=== PATIENT | male | born 1985 | race Caucasian/White ===

== ENCOUNTER 2016-08-21 12:35 | Emergency (ER) | payer BC, MEDICAID, OTHER ==
--- NOTE | 2016-08-21 12:59 | ER Document Report ---
ED Medical Screen (RME) - General Chief Complaint: Chest Pain Stated Complaint: CHEST PAIN AND BACK PAIN Time Seen by Provider: 08/21/16 12:53 Mode of Arrival: Ambulatory Information source: Patient TRAVEL OUTSIDE OF THE [place] IN LAST 30 DAYS: No - HPI Onset: Other - 2 DAYS Onset/Duration: Gradual Quality of pain: Sharp - SOMETIMES Severity: Moderate Associated Symptoms: Chest pain, Chills, Cough (productive), Diarrhea, Nausea, Shortness of breath, Vomiting Exacerbated by: Coughing, Deep breathing Relieved by: Denies Similar symptoms previously: No Recently seen / treated by doctor: No - Related Data Smoking: Less than 1 pack/day Frequency of alcohol use: Occasional Drug Abuse: Marijuana Allergies/Adverse Reactions: No Known Allergies Allergy (Unverified 08/21/16 12:48) Past Medical History - General Information source: Patient - Social History Cigarette use (# per day): Yes Chew tobacco use (# tins/day): No Frequency of alcohol use: Occasional Drug Abuse: Marijuana Lives with: Spouse/Significant other Family history: CAD - Past Medical History Cardiac Medical History: Reports: None Pulmonary Medical History: Reports: None EENT Medical History: Reports: None Endocrine Medical History: Reports: None Renal/ Medical History: Denies: Hx Peritoneal Dialysis Malignancy Medical History: Reports None GI Medical History: Reports: None Musculoskeltal Medical History: Reports None Psychiatric Medical History: Reports: None Review of Systems - Review of Systems Constitutional: See HPI EENT: No symptoms reported Cardiovascular: See HPI Respiratory: See HPI Gastrointestinal: See HPI Physical Exam - Vital signs Vitals: Temp Pulse Resp BP Pulse Ox 97.6 F 80 18 150/80 H 98 08/21/16 12:48 08/21/16 12:48 08/21/16 12:48 08/21/16 12:48 08/21/16 12:48 Interpretation: Hypertensive. No: Tachycardic, Tachypneic, Febrile Course - Vital Signs Vital signs: Temp Pulse Resp BP Pulse Ox 97.6 F 80 18 150/80 H 98 08/21/16 12:48 08/21/16 12:48 08/21/16 12:48 08/21/16 12:48 08/21/16 12:48
--- NOTE | 2016-08-21 13:21 | RADIOLOGY REPORT (SQ) ---
EXAM DESCRIPTION: CHEST PA/LAT COMPLETED DATE/TIME: 08/21/2016 1:15 pm REASON FOR STUDY: CHEST PAIN, PRODUCTIVE COUGH COMPARISON: 07/17/2006. EXAM PARAMETERS: NUMBER OF VIEWS: two views TECHNIQUE: Digital Frontal and Lateral radiographic views of the chest acquired. RADIATION DOSE: NA LIMITATIONS: none FINDINGS: LUNGS AND PLEURA: No opacities, masses or pneumothorax. No pleural effusion. MEDIASTINUM AND HILAR STRUCTURES: No masses or contour abnormalities. HEART AND VASCULAR STRUCTURES: Heart normal size. No evidence for failure. BONES: No acute findings. HARDWARE: None in the chest. OTHER: No other significant finding. IMPRESSION: NO SIGNIFICANT RADIOGRAPHIC FINDING IN THE CHEST. TECHNICAL DOCUMENTATION: JOB ID: [id number] [employer]- All Rights Reserved
[2016-08-21 13:24] LABS: ABSOLUTE LYMPHOCYTES (AUTO) 2.3 10^3/uL (0.5-4.7); ABSOLUTE MONOCYTES (AUTO) 0.8 10^3/uL (0.1-1.4); ABSOLUTE NEUT (AUTO) 15.4 10^3/uL (1.7-8.2); BASOPHILS % (AUTO) 0.2 % (0-2); EOSINOPHILS % (AUTO) 0.1 % (0-6); HEMOGLOBIN 17.7 g/dL (13.5-17.0); HGB HCT DIFFERENCE 0.1; LYMPHOCYTES % (AUTO) 12.2 % (13-45); MEAN CORPUSCULAR HEMOGLOBIN 29.1 pg (27.0-33.4); MEAN CORPUSCULAR HGB CONC 33.5 g/dL (32.0-36.0); MEAN CORPUSCULAR VOLUME 87 fl (80-97); MONOCYTES % (AUTO) 4.4 % (3-13); RED CELL DISTRIBUTION WIDTH 13.7 % (11.5-14.0); SEGMENTED NEUTROPHILS % (AUTO) 83.1 % (42-78); WHITE BLOOD COUNT 18.5 10^3/uL (4.0-10.5)
[2016-08-21 13:36] LABS: ALANINE AMINOTRANSFERASE 45 U/L (21-72); ALBUMIN 5.2 g/dL (3.5-5.0); ALKALINE PHOSPHATASE 72 U/L (38-126); ANION GAP 16 (5-19); ASPARTATE AMINO TRANSFERASE 26 U/L (17-59); BILIRUBIN,DIRECT 0.3 mg/dL (0.0-0.4); BILIRUBIN,TOTAL 1.1 mg/dL (0.2-1.3); BLOOD UREA NITROGEN 15 mg/dL (7-20); CALCIUM 10.5 mg/dL (8.4-10.2); CARBON DIOXIDE 26 mmol/L (22-30); CHLORIDE 93 mmol/L (98-107); CREATINE KINASE 123 U/L (55-170); CREATININE RESULT 0.89 mg/dL (0.52-1.25); GLUCOSE 116 mg/dL (75-110); POTASSIUM 4.1 mmol/L (3.6-5.0); SODIUM 135.1 mmol/L (137-145); TOTAL PROTEIN 8.6 g/dL (6.3-8.2)
[2016-08-21 13:48] LABS: CREATINE KINASE MB 1.67 ng/mL (<4.55)
[2016-08-21 13:50] LABS: TROPONIN I < 0.012 ng/mL
[2016-08-21] MEDS ORDERED: KETOROLAC TROMETHAMINE INJ/PF 30 MG/1 ML SDV IV ONE (13:57)
[2016-08-21] MEDS ORDERED: ONDANSETRON 4 MG TAB.RAPDIS PO ONE (13:57)
[2016-08-21 14:00] LABS: APPEARANCE,URINE CLEAR; BILIRUBIN,URINE NEGATIVE (NEGATIVE); GLUCOSE, URINE NEGATIVE (NEGATIVE); KETONES,URINE 20 mg/dL (NEGATIVE); LEUKOCYTE ESTERASE,URINE NEGATIVE (NEGATIVE); NITRITE,URINE NEGATIVE (NEGATIVE); PROTEIN,URINE NEGATIVE (NEGATIVE); URINE SPECIFIC GRAVITY 1.011; UROBILINOGEN,URINE NEGATIVE mg/dL (<2.0)
--- NOTE | 2016-08-21 14:03 | ER Document Report ---
ED General - General Chief Complaint: Chest Pain Stated Complaint: CHEST PAIN AND BACK PAIN Time Seen by Provider: 08/21/16 12:53 Mode of Arrival: Ambulatory Notes: The patient is a 31-year-old male, no past medical history, presents with 1 week of left posterior chest wall pain, that is worse when he moves his shoulder and scapula. In addition, he is having nausea and vomiting over the past 3 days. He denies shortness of breath, fevers, hemoptysis, abdominal pain , diarrhea, constipation, sick contacts, numbness, tingling or shoulder injury. TRAVEL OUTSIDE OF THE [place] IN LAST 30 DAYS: No - Related Data Allergies/Adverse Reactions: No Known Allergies Allergy (Unverified 08/21/16 12:48) Past Medical History - General Information source: Patient - Social History Smoking Status: Current Every Day Smoker Cigarette use (# per day): Yes Chew tobacco use (# tins/day): No Frequency of alcohol use: Occasional Drug Abuse: Marijuana Lives with: Spouse/Significant other Family History: Reviewed & Not Pertinent - Past Medical History Cardiac Medical History: Reports: None Pulmonary Medical History: Reports: None EENT Medical History: Reports: None Endocrine Medical History: Reports: None Renal/ Medical History: Denies: Hx Peritoneal Dialysis Malignancy Medical History: Reports None GI Medical History: Reports: None Musculoskeltal Medical History: Reports None Psychiatric Medical History: Reports: None Surgical Hx: Negative Review of Systems - Review of Systems Notes: REVIEW OF SYSTEMS: CONSTITUTIONAL: -fevers, -chills EENT: -eye pain, -difficulty swallowing, -nasal congestion CARDIOVASCULAR: +chest pain, -syncope. RESPIRATORY: -cough, -SOB GASTROINTESTINAL: -abdominal pain, +nausea, +vomiting, -diarrhea GENITOURINARY: -dysuria, -hematuria MUSCULOSKELETAL: -back pain, -neck pain SKIN: -rash or skin lesions. HEMATOLOGIC: -easy bruising or bleeding. LYMPHATIC: -swollen, enlarged glands. NEUROLOGICAL: -altered mental status or loss of consciousness, -headache, - neurologic symptoms PSYCHIATRIC: -anxiety, -depression. ALL OTHER SYSTEMS REVIEWED AND NEGATIVE. Physical Exam - Vital signs Vitals: Temp Pulse Resp BP Pulse Ox 97.6 F 80 18 150/80 H 98 08/21/16 12:48 08/21/16 12:48 08/21/16 12:48 08/21/16 12:48 08/21/16 12:48 - Notes Notes: PHYSICAL EXAMINATION: GENERAL: Well-appearing, well-nourished and in no acute distress. HEAD: Atraumatic, normocephalic. EYES: Pupils equal round and reactive to light, extraocular movements intact, sclera anicteric, conjunctiva are normal. ENT: nares patent, oropharynx clear without exudates. Moist mucous membranes. NECK: Normal range of motion, supple without lymphadenopathy LUNGS: Breath sounds clear to auscultation bilaterally and equal. No wheezes rales or rhonchi. HEART: Regular rate and rhythm without murmurs ABDOMEN: Soft, nontender, normoactive bowel sounds. No guarding, no rebound. No masses appreciated. EXTREMITIES: Normal range of motion, no pitting or edema. No cyanosis. Tenderness over inferior edge of left scapula, worse with scapular movement NEUROLOGICAL: Cranial nerves grossly intact. Normal speech, normal gait. Normal sensory and motor exams. PSYCH: Normal mood, normal affect. SKIN: Warm, Dry, normal turgor, no rashes or lesions noted. Course - Re-evaluation Re-evalutation: Patient appears well. He has left inferior scapular pain and tenderness, which is most likely related to muscle strain. His EKG and troponin do not show any evidence of acute coronary syndrome and his HEART score is 1. Labs are unremarkable, other than a leukocytosis. He does not have any signs of infection or fever and this may be related to his recent vomiting episodes. After Zofran, patient is drinking fluids without any nausea or vomiting. Given strict return precautions and he understands. - Vital Signs Vital signs: Temp Pulse Resp BP Pulse Ox 97.6 F 80 19 154/95 H 96 08/21/16 12:48 08/21/16 12:48 08/21/16 13:21 08/21/16 13:21 08/21/16 13:21 - Laboratory Result Diagrams: 08/21/16 12:59 08/21/16 12:59 Laboratory results interpreted by me: 08/21/16 08/21/16 08/21/16 12:59 12:59 12:59 WBC 18.5 H RBC 6.10 H Hgb 17.7 H Hct 53.0 H Plt Count 149 L Seg Neutrophils % 83.1 H Lymphocytes % 12.2 L Absolute Neutrophils 15.4 H Sodium 135.1 L Chloride 93 L Glucose 116 H Calcium 10.5 H Total Protein 8.6 H Albumin 5.2 H Urine Ketones 20 H - Diagnostic Test Radiology reviewed: Image reviewed, Reports reviewed Radiology results interpreted by me: CXR: NAD - EKG Interpretation by Me EKG shows normal: Sinus rhythm, Wheeler, Intervals, QRS Complexes, ST-T Waves Rate: Normal Discharge - Discharge Clinical Impression: Nausea Chest pain Qualifiers: Chest pain type: unspecified Qualified Code(s): R07.9 - Chest pain, unspecified Back pain Qualifiers: Back pain location: back pain in other location Chronicity: acute Qualified Code(s): M54.9 - Dorsalgia, unspecified Condition: Stable Disposition: HOME, SELF-CARE Additional Instructions: CHEST PAIN OF UNCLEAR CAUSE: The exact cause of your chest pain isn't clear. Fortunately, there is no evidence of a dangerous medical condition. Further testing may be required to find the source of the pain. Most often, we find that this pain is coming from the chest wall -- the muscles or rib joints in the chest. But chest pain can come from the lung and lung lining, the esophagus, the heart valves or heart lining, and even the stomach or gallbladder. Rest. Eat lightly until the pain is gone. We may prescribe medicine for pain and inflammation. You should call the physician immediately if the pain radiates to the shoulder, jaw or arms; if you start to run a fever or develop a cough; or if you develop shortness of breath, or other new or alarming symptoms. NORMAL EXAM AND WORKUP: At this time, your examination and workup show no significant abnormality. No significant abnormal physical findings were noted. All laboratory, EKG, and imaging (x-ray, CT scans, ultrasound) studies that were ordered show no significant abnormality. Although your examination and all studies that were ordered showed no significant abnormal finding, there are no examinations and no studies that are 100% accurate. There is always the possibility that some abnormality could exist and not be detected with physical examination or within the limits and capabilities of laboratory and other studies. You should return or follow up as you were instructed on your visit today for further evaluation if your symptoms do not resolve. CHEST WALL PAIN: Your chest pain may be coming from the chest wall. This is often caused by straining the muscles or joints in the chest during physical activity, direct trauma, coughing, or vigorous vomiting. Persons with arthritis are especially prone to this type of pain, due to inflammation of the cartilage joints near the breast bone. Occasionally, no cause can be found. Rest from strenuous physical activity. This kind of chest pain is usually made worse by movement of the chest. Depending on the symptoms, we may prescribe medicine for pain, muscle relaxation, and antiinflammatory effects. If the pain is new, and seems to be due to muscle strain, cold packs can help. Otherwise, apply gentle warmth to the painful area for 15 minutes every hour or two. You should call contact the doctor immediately if things change. Further evaluation is needed if you develop a fever or cough, if the nature of the pain changes, or if you become short of breath. FOLLOW-UP CARE: If you have been referred to a physician for follow-up care, call the physician s office for an appointment as you were instructed or within the next two days. If you experience worsening or a significant change in your symptoms, notify the physician immediately or return to the Emergency Department at any time for re-evaluation. VOMITING: Vomiting (or nausea without vomiting) can be caused by many other different problems. It can mean that something's wrong with the stomach, such as ulcers or inflammation or the intestinal tract, such as appendicitis. But it can also be a symptom of a problem that has nothing to do with the stomach or intestines. Vomiting is common with severe headaches, earaches, tonsillitis, and kidney infections, etc. We see it with pneumonia or heart attacks. Drugs can cause nausea and vomiting. Many abdominal problems cause vomiting; for example, gallstones, kidney stones, pancreatitis, and intestinal obstruction ( blocked bowels). In most cases, curing the vomiting depends on fixing the problem that caused it. For temporary relief, we may use an anti-nausea medicine. For home use, we can prescribe suppositories, chewable pills, pills that dissolve in the mouth, or liquid anti-nausea drugs. If the vomiting seems to be caused by a problem in the stomach, acid-suppressing drugs may be prescribed as well. It's important to avoid dehydration. Sip small amounts of clear liquids ( soft drinks, tea, broth, etc) . Try to take fluids frequently even if you are vomiting to prevent dehydration. Take increasing amounts of fluid and when liquids are being consumed successfully, advance to small amounts of bland food (toast, soups, mashed potatoes, etc.) until you are able to resume a regular diet. Avoid aspirin, tobacco, and alcohol. If the vomiting worsens, if the problem that's making you vomit worsens, or if there's evidence of bleeding in the stomach (such as black, tarry stool, or bloody or black vomit), you should return immediately. Also, return if abdominal pain worsens or becomes localized to one area or you develop high fever. Call your doctor if you aren't improved in 24 hours. ANTINAUSEA MEDICATION: You have been given a medication to suppress nausea and vomiting. This type of medication can be given as a shot, pill, or suppository. It will usually last for many hours. Pills and shots usually last six to eight hours. For the typical illness, only one or two doses of the medication may be necessary. Mild lightheadedness may occur. This type of medicine can cause drowsiness. Do not drive or operate dangerous machinery while under its influence. Do not mix with alcohol. See your doctor at once if you have muscle spasms or tightness, or uncontrollable motions (particularly of the neck, mouth, or jaw). Persistent vomiting or severe lightheadedness should also be evaluated by the physician. FOLLOW-UP CARE: If you have been referred to a physician for follow-up care, call the physician s office for an appointment as you were instructed or within the next two days. If you experience worsening or a significant change in your symptoms, notify the physician immediately or return to the Emergency Department at any time for re-evaluation. Prescriptions: Lidocaine [Lidoderm 5% (700 mg) Transdermal Patch] 1 patch TP DAILY #10 adh..patch Naproxen [Naprosyn 250 mg Tablet] 500 mg PO Q12H PRN #30 tablet PRN Reason: Ondansetron [Zofran Odt 4 mg Tablet] 1 - 2 tab PO Q4H PRN #15 tab.rapdis PRN Reason: For Nausea/Vomiting Forms: Elevated Blood Pressure Referrals: HELGA ALLEN MD [ACTIVE STAFF] - Follow up as needed
--- NOTE | 2016-08-21 14:05 | EKG REPORT ---
SEVERITY:- BORDERLINE ECG - SINUS RHYTHM NONSPECIFIC ST-T CHANGES- INFERIOR LEADS : Confirmed by: Lorenzo Lopez MD 21-Aug-2016 14:04:27
[2016-08-21 14:17] VITALS: BP 133/82
== END 2016-08-21 14:05 | disposition home or self-care (01) ==
LOC: ER 12:35
DX: R11.2 Nausea with vomiting, unspecified (principal); R07.9 Chest pain, unspecified; M54.9 Dorsalgia, unspecified; R07.89 Other chest pain; F17.210 Nicotine dependence, cigarettes, uncomplicated
CPT/HCPCS: 93005; 99285; 36415; 87040; 82553; 82550; 85025; 80053; 81001; 84484; 71020; 93010; S0119

== ENCOUNTER 2016-10-11 09:34 | Emergency (ER) | payer SELFPAY ==
[2016-10-11] MEDS ORDERED: ONDANSETRON HCL INJ/PF 4 MG/2 ML SDV IV ONE (09:53)
--- NOTE | 2016-10-11 09:55 | ER Document Report ---
ED Medical Screen (RME) - General Chief Complaint: Abdominal Pain Stated Complaint: VOMITING,WEAKNESS Time Seen by Provider: 10/11/16 09:52 Notes: Patient states that this is his third visit recently for the same problems. He states he has nausea vomiting diarrhea, and fatigue and abdominal pain. He states the previous 2 times he was diagnosed with a viral infection. He states he will feel better for a couple of days and then the same symptoms returned. He denies any drug or alcohol use. He denies any chronic medical conditions. He denies any abdominal surgeries. TRAVEL OUTSIDE OF THE [place] IN LAST 30 DAYS: No - Related Data Allergies/Adverse Reactions: No Known Allergies Allergy (Unverified 10/11/16 09:49) Past Medical History - Social History Family history: CAD Renal/ Medical History: Denies: Hx Peritoneal Dialysis Physical Exam - Vital signs Vitals: Resp 18 10/11/16 09:45 Course - Vital Signs Vital signs: Temp Pulse Resp BP Pulse Ox 98.0 F 60 18 163/98 H 99 10/11/16 09:47 10/11/16 09:47 10/11/16 09:47 10/11/16 09:47 10/11/16 09:47
[2016-10-11] MEDS: NORMAL SALINE 1000 ML 1,000 ML IV PRN ×2 (10:08→10:48)
[2016-10-11 10:25] LABS: ABSOLUTE BASOPHILS # (AUTO) 0.1 10^3/uL (0.0-0.2); ABSOLUTE LYMPHOCYTES (AUTO) 1.1 10^3/uL (0.5-4.7); ABSOLUTE MONOCYTES (AUTO) 0.5 10^3/uL (0.1-1.4); ABSOLUTE NEUT (AUTO) 11.6 10^3/uL (1.7-8.2); BASOPHILS % (AUTO) 0.4 % (0-2); EOSINOPHILS % (AUTO) 0.1 % (0-6); HEMATOCRIT 47.9 % (37.9-51.0); HGB HCT DIFFERENCE 0.1; LYMPHOCYTES % (AUTO) 8.5 % (13-45); MEAN CORPUSCULAR HEMOGLOBIN 29.9 pg (27.0-33.4); MEAN CORPUSCULAR HGB CONC 33.5 g/dL (32.0-36.0); MEAN CORPUSCULAR VOLUME 89 fl (80-97); MONOCYTES % (AUTO) 3.7 % (3-13); RED BLOOD COUNT 5.35 10^6/uL (4.35-5.55); RED CELL DISTRIBUTION WIDTH 14.4 % (11.5-14.0); SEGMENTED NEUTROPHILS % (AUTO) 87.3 % (42-78); WHITE BLOOD COUNT 13.3 10^3/uL (4.0-10.5)
--- NOTE | 2016-10-11 10:27 | ER Document Report ---
ED GI/ <SIRENA SLATER - Last Filed: 10/11/16 12:05> - General Mode of Arrival: Ambulatory Information source: Patient TRAVEL OUTSIDE OF THE [place] IN LAST 30 DAYS: No <JASMYN OWENS - Last Filed: 10/11/16 12:32> - General Chief Complaint: Abdominal Pain Stated Complaint: VOMITING,WEAKNESS Time Seen by Provider: 10/11/16 09:52 Notes: Patient is a 31-year-old male who presents to the emergency department today with complaints of diffuse abdominal pain with continuous vomiting. Patient states he has been having the same issue on and off for months. Of note, patient has still been smoking marijuana. Patient denies any changes in his symptoms from his previous visits. (JASMYN OWENS) - Related Data Allergies/Adverse Reactions: No Known Allergies Allergy (Verified 10/11/16 10:44) Past Medical History - General Information source: Patient - Social History Smoking Status: Never Smoker Cigarette use (# per day): No Frequency of alcohol use: None Drug Abuse: None Lives with: Family Family History: Reviewed & Not Pertinent Patient has suicidal ideation: No - Medical History Medical History: Negative Past Surgical History: Reports: Hx Orthopedic Surgery - right achilles repair <JASMYN OWENS - Last Filed: 10/11/16 12:32> Review of Systems - Review of Systems Constitutional: No symptoms reported EENT: No symptoms reported Cardiovascular: No symptoms reported Respiratory: No symptoms reported Gastrointestinal: See HPI, Abdominal pain, Nausea, Vomiting Genitourinary: No symptoms reported Male Genitourinary: No symptoms reported Musculoskeletal: No symptoms reported Skin: No symptoms reported Hematologic/Lymphatic: No symptoms reported Neurological/Psychological: No symptoms reported -: Yes All other systems reviewed and negative <JASMYN OWENS - Last Filed: 10/11/16 12:32> Physical Exam - Vital signs Interpretation: Normal - General General appearance: Appears well, Alert - HEENT Head: Normocephalic, Atraumatic Eyes: Normal Pupils: PERRL - Respiratory Respiratory status: No respiratory distress Breath sounds: Wheezing - diffuse, consistent with smoking history Chest palpation: Normal - Cardiovascular Rhythm: Regular Heart sounds: Normal auscultation Murmur: No - Abdominal Distension: No distension Bowel sounds: Normal Tenderness: Tender - mild diffuse abdominal tenderness Organomegaly: No organomegaly - Back Back: Normal, Nontender - Extremities General upper extremity: Normal inspection, Normal ROM. No: Edema General lower extremity: Normal inspection, Normal ROM. No: Edema - Neurological Neuro grossly intact: Yes Cognition: Normal Orientation: AAOx4 Buchtel Coma Scale Eye Opening: Spontaneous Rainer Coma Scale Verbal: Oriented Rainer Coma Scale Motor: Obeys Commands Buchtel Coma Scale Total: 15 Speech: Normal - Psychological Associated symptoms: Normal affect, Normal mood - Skin Skin Temperature: Warm Skin Moisture: Dry Skin Color: Normal <JASMYN OWENS - Last Filed: 10/11/16 12:32> - Vital signs Vitals: Resp 18 10/11/16 09:45 Course - Laboratory Result Diagrams: 10/11/16 10:00 10/11/16 10:00 <SIRENA SLATER - Last Filed: 10/11/16 12:05> - Laboratory Result Diagrams: 10/11/16 10:00 10/11/16 10:00 <JASMYN OWENS - Last Filed: 10/11/16 12:32> - Re-evaluation Re-evalutation: 10/11/16 12:05 Patient is feeling better, the vomiting is under control. He still does have some discomfort in the left upper abdomen. (SIRENA SLATER) - Vital Signs Vital signs: Temp Pulse Resp BP Pulse Ox 97.4 F 66 18 154/79 H 100 10/11/16 12:16 10/11/16 12:16 10/11/16 12:16 10/11/16 12:16 10/11/16 12:16 - Laboratory Laboratory results interpreted by me: 10/11/16 10/11/16 10/11/16 10:00 10:00 10:00 WBC 13.3 H RDW 14.4 H Plt Count 137 L Seg Neutrophils % 87.3 H Lymphocytes % 8.5 L Absolute Neutrophils 11.6 H Sodium 136.8 L Direct Bilirubin 0.6 H Urine Ketones 20 H Urine Ascorbic Acid 40 H Discharge <SIRENA SLATER - Last Filed: 10/11/16 12:05> <JASMYN OWENS - Last Filed: 10/11/16 12:32> - Discharge Clinical Impression: Cyclic vomiting syndrome Qualifiers: Vomiting Intractability: non-intractable Nausea presence: with nausea Qualified Code(s): G43.A0 - Cyclical vomiting, not intractable Nausea & vomiting Qualifiers: Vomiting type: unspecified Vomiting Intractability: non-intractable Qualified Code(s): R11.2 - Nausea with vomiting, unspecified Abdominal pain Qualifiers: Abdominal location: left upper quadrant Qualified Code(s): R10.12 - Left upper quadrant pain Condition: Stable Disposition: HOME, SELF-CARE Additional Instructions: Your history and exam are most consistent with THC-induced hyperemesis, also known as cyclic vomiting. If THC is the cause of this, it will be difficult to stop your symptoms without refraining from marijuana use for up to 2 months or more. Drink plenty of fluids. Take the medication for nausea as prescribed if needed. Follow-up with a local medical doctor if not improving. RETURN TO THE EMERGENCY ROOM IF ANY NEW OR WORSENING SYMPTOMS. Prescriptions: Metoclopramide HCl [Reglan 10 mg Tablet] 1 tab PO ASDIR PRN #25 tablet PRN Reason: Scribe Attestation: 10/11/16 12:11 I personally performed the services described in the documentation, reviewed and edited the documentation which was dictated to the scribe in my presence, and it accurately records my words and actions. (SIRENA SLATER) Scribe Documentation - Scribe Written by Clemencia:: Clemencia Reese, 10/11/2016 1232 acting as scribe for :: Cesar <JASMYN OWENS - Last Filed: 10/11/16 12:32>
[2016-10-11] MEDS ORDERED: METOCLOPRAMIDE HCL INJ/PF 10 MG/2 ML SDV IV ONE (10:30)
[2016-10-11] MEDS ORDERED: KETOROLAC TROMETHAMINE INJ/PF 30 MG/1 ML SDV IV ONE (10:30)
[2016-10-11 10:36] LABS: APPEARANCE,URINE SLIGHTLY-CLOUDY; BILIRUBIN,URINE NEGATIVE (NEGATIVE); GLUCOSE, URINE NEGATIVE (NEGATIVE); KETONES,URINE 20 mg/dL (NEGATIVE); LEUKOCYTE ESTERASE,URINE NEGATIVE (NEGATIVE); NITRITE,URINE NEGATIVE (NEGATIVE); PROTEIN,URINE NEGATIVE (NEGATIVE); UROBILINOGEN,URINE NEGATIVE mg/dL (<2.0)
[2016-10-11 10:46] LABS: URINE BARBITURATES SCREEN NEGATIVE; URINE METHADONE SCREEN NEGATIVE; URINE OPIATES LOW NEGATIVE; URINE PHENCYCLIDINE SCREEN NEGATIVE
[2016-10-11 10:48] LABS: ALANINE AMINOTRANSFERASE 38 U/L (21-72); ALBUMIN 4.9 g/dL (3.5-5.0); ALKALINE PHOSPHATASE 68 U/L (38-126); ANION GAP 13 (5-19); ASPARTATE AMINO TRANSFERASE 25 U/L (17-59); BILIRUBIN,DIRECT 0.6 mg/dL (0.0-0.4); BILIRUBIN,TOTAL 0.9 mg/dL (0.2-1.3); BLOOD UREA NITROGEN 16 mg/dL (7-20); CARBON DIOXIDE 24 mmol/L (22-30); CHLORIDE 100 mmol/L (98-107); CREATININE RESULT 0.75 mg/dL (0.52-1.25); GLUCOSE 98 mg/dL (75-110); POTASSIUM 4.4 mmol/L (3.6-5.0); SODIUM 136.8 mmol/L (137-145); TOTAL PROTEIN 7.7 g/dL (6.3-8.2)
[2016-10-11 10:50] LABS: ALCOHOL < 10 mg/dL (NONE DETECTED)
[2016-10-11 12:17] VITALS: BP 154/79
== END 2016-10-11 12:20 | disposition home or self-care (01) ==
LOC: ER 09:34
DX: G43.A0 Cyclical vomiting, in migraine, not intractable (principal); R10.12 Left upper quadrant pain; R53.1 Weakness
CPT/HCPCS: 99284; 96361; 96374; 96375; 36415; 80307 ×2; 83690; 85025; 80053; 81001; J1885; J2765; J2405; J7030

== ENCOUNTER 2017-04-03 08:33 | Emergency (ER) | payer SELFPAY ==
[2017-04-03] MEDS ORDERED: KETOROLAC TROMETHAMINE 60 MG/2 ML SDV IM ONE (08:55)
[2017-04-03] MEDS ORDERED: CEFTRIAXONE INJ 1000 MG VIAL IM ONE (08:55)
--- NOTE | 2017-04-03 09:00 | ER Document Report ---
ED Extremity Problem, Lower - General Chief Complaint: Leg Swelling Stated Complaint: LEG PAIN Time Seen by Provider: 04/03/17 08:54 Information source: Patient Notes: 31 years old male presents today with right lower leg swelling and redness, for the last few days.. With a previous history of cellulitis of the right lower leg. No fever chills or other constitutional symptoms. He stands up and work all the time the other day he accidentally hit the medial part of the lower leg against a hard object. Subsequently developed this redness and swelling. TRAVEL OUTSIDE OF THE [place] IN LAST 30 DAYS: No - HPI Patient complains to provider of: Pain. No: Altered sensation, Injury, Swelling , Other Location: Leg. No: Ankle, Back, Buttock, Foot, Hip, Knee, Thigh, Great Toe, 2nd Toe, 3rd Toe, 4th Toe, 5th Toe Where: No: Home, Indoors, Neighbor's, Long-Term, Outdoors, Public place, School, Sports, Work, Other Onset/Duration: Gradual. denies: Sudden, Constant, Intermittent, Persistent, Waxing and waning, Better, Worse, Gone Quality of pain: Achy. denies: No pain, Burning, Cramping, Dull, Fullness, Pressure, Sharp, Stabbing, Throbbing, Other Severity: Mild Pain Level: 2 Context: denies: Barefoot, Burn, Crush, Direct blow, Fell, Laceration, Prolonged pressure on ext, Recent immobilization, Recent surgery, Recent travel , Stubbed, Twisted, Wearing shoes, Other - Related Data Allergies/Adverse Reactions: No Known Allergies Allergy (Verified 04/03/17 08:34) Past Medical History - General Information source: Patient - Social History Smoking Status: Never Smoker Cigarette use (# per day): No Chew tobacco use (# tins/day): No Smoking Education Provided: No Frequency of alcohol use: Social Drug Abuse: None Lives with: Family Family History: Reviewed & Not Pertinent Patient has suicidal ideation: No Patient has homicidal ideation: No - Past Medical History Cardiac Medical History: Denies: None, Hx Atrial Fibrillation, Hx Congestive Heart Failure, Hx Coronary Artery Disease, Hx DVT, Hx Heart Attack, Hx Hypercholesterolemia, Hx Hypertension, Hx Peripheral Vascular Disease, Hx Pulmonary Embolism, Hx Heart Murmur, Other Pulmonary Medical History: Denies: None, Hx Asthma, Hx Bronchitis, Hx COPD, Hx Pneumonia, Hx Intubation , Hx Respiratory Failure, Hx Sleep Apnea, Hx Tuberculosis, Other EENT Medical History: Denies: None, Eyes, Ears, Nose, Throat, Other Neurological Medical History: Denies: None, Hx Cerebrovascular Accident, Hx Migraine, Hx Seizures, Other Endocrine Medical History: Denies: None, Hx Diabetes Mellitus Type 1, Hx Diabetes Mellitus Type 2, Hx Graves' Disease, Hx Hyperthyroidism, Hx Hypothyroidism, Other Renal/ Medical History: Denies: Hx Peritoneal Dialysis Past Surgical History: Reports: Hx Orthopedic Surgery - right achilles repair Review of Systems - Review of Systems Constitutional: denies: No symptoms reported, See HPI, Chills, Diaphoresis, Fever, Malaise, Weakness, Other, Weight gain, Weight loss, Recent illness EENT: denies: No symptoms reported, See HPI, Eye pain, Eye discharge, Blurred vision, Tearing, Double vision, Ear pain, Ear discharge, Nose pain, Nose congestion, Nose discharge, Sinus pressure, Sinus discharge, Throat pain, Difficulty swallowing, Throat swelling, Mouth pain, Mouth swelling, Dental problem, Vertigo, Other Cardiovascular: denies: No symptoms reported, See HPI, Chest pain, Palpitations , Heart racing, Orthopnea, Dyspnea, Syncope, Dizziness, Lightheaded, Edema, Other, Paroxysmal Nocturnal Dysp Respiratory: denies: No symptoms reported, See HPI, Cough, Hurts to breathe, Hemoptysis, Short of breath, Sputum, Stridor, Wheezing, Other Gastrointestinal: denies: No symptoms reported, See HPI, Abdomen distended, Abdominal pain, Diarrhea, Nausea, Vomiting, Constipation, Blood streaked bowels , Poor appetite, Poor fluid intake, Blood in vomit, Black stools, Rectal bleeding, Last bowel movement, Fecal incontinence, Other Genitourinary: denies: No symptoms reported, See HPI, Burning, Dysuria, Discharge, Frequency, Flank pain, Hematuria, Incontinence, Pain, Urgency, Retention, Other Musculoskeletal: denies: No symptoms reported, See HPI, Back pain, Gout, Joint pain, Joint swelling, Muscle pain, Muscle stiffness, Neck pain, Deformity, Leg swelling, Ankle swelling, Other Skin: denies: No symptoms reported, See HPI, Change in color, Change in hair/ nails, Dryness, Lesions, Lumps, Rash, Other Hematologic/Lymphatic: denies: No symptoms reported, See HPI, Anemia, Blood clots, Easy bleeding, Easy bruising, Enlarged lymph nodes, Swollen glands, Other Physical Exam - Vital signs Vitals: Temp Pulse Resp BP Pulse Ox 98.2 F 89 16 140/74 H 98 04/03/17 08:36 04/03/17 08:36 04/03/17 08:36 04/03/17 08:36 04/03/17 08:36 - Notes Notes: PHYSICAL EXAMINATION: GENERAL: Well-appearing, well-nourished and in no acute distress. HEAD: Atraumatic, normocephalic. EYES: Pupils equal round and reactive to light, extraocular movements intact, sclera anicteric, conjunctiva are normal. ENT: Nares patent, oropharynx clear without exudates. Moist mucous membranes. NECK: Normal range of motion, supple without lymphadenopathy LUNGS: Breath sounds clear to auscultation bilaterally and equal. No wheezes rales or rhonchi. HEART: Regular rate and rhythm without murmurs ABDOMEN: Soft, nontender, nondistended abdomen. No guarding, no rebound. No masses appreciated. Musculoskeletal: Normal range of motion, no pitting or edema. No cyanosis. NEUROLOGICAL: Cranial nerves grossly intact. Normal speech, normal gait. Normal sensory, motor exams PSYCH: Normal mood, normal affect. SKIN: Skin over the right medial lower leg shows diffuse erythema slight swelling is warm and tender to touch an area of 10 x 10 cm. No fluctuant mass. Course - Re-evaluation Re-evalutation: 04/03/17 10:49 He was given IM ceftriaxone, his white count came back slightly elevated at 13, 000. - Vital Signs Vital signs: Temp Pulse Resp BP Pulse Ox 97.8 F 78 16 137/80 H 100 04/03/17 10:59 04/03/17 10:59 04/03/17 10:59 04/03/17 10:59 04/03/17 10:59 - Laboratory Result Diagrams: 04/03/17 09:25 Laboratory results interpreted by me: 04/03/17 09:25 WBC 13.5 H Hgb 13.3 L Lymphocytes % 12.5 L Absolute Neutrophils 10.4 H Discharge - Discharge Clinical Impression: Cellulitis of right lower extremity Condition: Fair Disposition: HOME, SELF-CARE Instructions: Cellulitis ([facility]) Prescriptions: Cephalexin Monohydrate [Keflex 500 mg Capsule] 500 mg PO Q6H 10 Days #40 capsule Referrals: LOCALMD,NO [Primary Care Provider] - Follow up as needed
[2017-04-03] MEDS ORDERED: LIDOCAINE 1% INJ (10 MG/ML) 10 ML MDV INJ ONE (09:12)
[2017-04-03 09:43] LABS: ABSOLUTE BASOPHILS # (AUTO) 0.1 10^3/uL (0.0-0.2); ABSOLUTE EOSINOPHILS # (AUTO) 0.1 10^3/uL (0.0-0.6); ABSOLUTE LYMPHOCYTES (AUTO) 1.7 10^3/uL (0.5-4.7); ABSOLUTE MONOCYTES (AUTO) 1.2 10^3/uL (0.1-1.4); ABSOLUTE NEUT (AUTO) 10.4 10^3/uL (1.7-8.2); BASOPHILS % (AUTO) 0.5 % (0-2); EOSINOPHILS % (AUTO) 0.7 % (0-6); HEMATOCRIT 40.3 % (37.9-51.0); HEMOGLOBIN 13.3 g/dL (13.5-17.0); LYMPHOCYTES % (AUTO) 12.5 % (13-45); MEAN CORPUSCULAR HEMOGLOBIN 29.1 pg (27.0-33.4); MEAN CORPUSCULAR HGB CONC 33.1 g/dL (32.0-36.0); MEAN CORPUSCULAR VOLUME 88 fl (80-97); PLATELET COUNT 158 10^3/uL (150-450); RED BLOOD COUNT 4.58 10^6/uL (4.35-5.55); RED CELL DISTRIBUTION WIDTH 13.9 % (11.5-14.0); SEGMENTED NEUTROPHILS % (AUTO) 77.3 % (42-78); TOTAL CELLS COUNTED % (AUTO) 100 %; WHITE BLOOD COUNT 13.5 10^3/uL (4.0-10.5)
[2017-04-03 11:01] VITALS: BP 137/80
== END 2017-04-03 11:01 | disposition home or self-care (01) ==
LOC: ER 08:33
DX: L03.115 Cellulitis of right lower limb (principal)
CPT/HCPCS: 99283; 96372; 36415; 87040; 85025; J1885; J0696; 87077

== ENCOUNTER 2017-04-05 08:35 | Day surgery (SDC) | payer SELFPAY ==
--- NOTE | 2017-04-05 09:26 | ER Document Report ---
ED Extremity Problem, Lower - General Chief Complaint: Leg Swelling Stated Complaint: RIGHT LEG PAIN Time Seen by Provider: 04/05/17 09:22 Information source: Patient TRAVEL OUTSIDE OF THE [place] IN LAST 30 DAYS: No - HPI Patient complains to provider of: Pain. No: Altered sensation, Injury, Swelling , Other Location: Ankle, Foot, Leg. No: Back, Buttock, Hip, Knee, Thigh, Great Toe, 2nd Toe, 3rd Toe, 4th Toe, 5th Toe Occurred: Last week Where: Home. No: Indoors, Neighbor's, Senior Living, Outdoors, Public place, School, Sports, Work, Other Onset/Duration: Gradual Quality of pain: Achy, Dull. denies: No pain, Burning, Cramping, Fullness, Pressure, Sharp, Stabbing, Throbbing, Other Context: denies: Barefoot, Burn, Crush, Direct blow, Fell, Laceration, Prolonged pressure on ext, Recent immobilization, Recent surgery, Recent travel , Stubbed, Twisted, Wearing shoes, Other Associated symptoms: denies: Chest pain, Chills, Dizzy, Fainting, Fever, Appling a crack, [place] a pop, Hurts to breath, Painful ambulation, Rapid heart rate, Seizure, Short of breath, Sweaty, Unable to bear weight, Weak, Other Exacerbated by: denies: Nothing, Hanging down, Movement, Walking, Other - Related Data Allergies/Adverse Reactions: No Known Allergies Allergy (Verified 04/05/17 08:37) Past Medical History - General Information source: Patient - Social History Smoking Status: Unknown if Ever Smoked Cigarette use (# per day): No Chew tobacco use (# tins/day): No Smoking Education Provided: No Frequency of alcohol use: Occasional Lives with: Family Family History: Reviewed & Not Pertinent Patient has suicidal ideation: No Patient has homicidal ideation: No - Past Medical History Cardiac Medical History: Denies: Hx Atrial Fibrillation, Hx Congestive Heart Failure, Hx Coronary Artery Disease, Hx DVT, Hx Heart Attack, Hx Hypercholesterolemia, Hx Hypertension, Hx Peripheral Vascular Disease, Hx Pulmonary Embolism, Hx Heart Murmur Pulmonary Medical History: Denies: Hx Asthma, Hx Bronchitis, Hx COPD, Hx Pneumonia, Hx Intubation, Hx Respiratory Failure, Hx Sleep Apnea, Hx Tuberculosis Neurological Medical History: Denies: Hx Cerebrovascular Accident, Hx Migraine, Hx Seizures Endocrine Medical History: Denies: Hx Diabetes Mellitus Type 1, Hx Diabetes Mellitus Type 2, Hx Graves' Disease, Hx Hyperthyroidism, Hx Hypothyroidism Renal/ Medical History: Denies: Hx Peritoneal Dialysis Past Surgical History: Reports: Hx Orthopedic Surgery - right achilles repair Review of Systems - Review of Systems Constitutional: denies: No symptoms reported, See HPI, Chills, Diaphoresis, Fever, Malaise, Weakness, Other, Weight gain, Weight loss, Recent illness EENT: denies: No symptoms reported, See HPI, Eye pain, Eye discharge, Blurred vision, Tearing, Double vision, Ear pain, Ear discharge, Nose pain, Nose congestion, Nose discharge, Sinus pressure, Sinus discharge, Throat pain, Difficulty swallowing, Throat swelling, Mouth pain, Mouth swelling, Dental problem, Vertigo, Other Cardiovascular: denies: No symptoms reported, See HPI, Chest pain, Palpitations , Heart racing, Orthopnea, Dyspnea, Syncope, Dizziness, Lightheaded, Edema, Other, Paroxysmal Nocturnal Dysp Respiratory: denies: No symptoms reported, See HPI, Cough, Hurts to breathe, Hemoptysis, Short of breath, Sputum, Stridor, Wheezing, Other Gastrointestinal: denies: No symptoms reported, See HPI, Abdomen distended, Abdominal pain, Diarrhea, Nausea, Vomiting, Constipation, Blood streaked bowels , Poor appetite, Poor fluid intake, Blood in vomit, Black stools, Rectal bleeding, Last bowel movement, Fecal incontinence, Other Genitourinary: denies: No symptoms reported, See HPI, Burning, Dysuria, Discharge, Frequency, Flank pain, Hematuria, Incontinence, Pain, Urgency, Retention, Other Male Genitourinary: denies: No symptoms reported, See HPI, Erectile dysfunction , Testicular pain, Penile discharge, Other Skin: See HPI Neurological/Psychological: denies: No symptoms reported, See HPI, Confusion, Dementia, Depression, Hallucinations, Anxiety, Homicidal ideation, Sensory change, Weakness, Gait changes, Loss of power, Paralysis, Seizure, Lost consciousness, Headaches, Speech impairment, Numbness, Suicidal ideation, Tingling, Tremor, Other Physical Exam - Vital signs Vitals: Temp Pulse Resp BP Pulse Ox 98.3 F 92 16 144/76 H 99 04/05/17 08:42 04/05/17 08:42 04/05/17 08:42 04/05/17 08:42 04/05/17 08:42 - Notes Notes: PHYSICAL EXAMINATION: GENERAL: Well-appearing, well-nourished and in no acute distress. HEAD: Atraumatic, normocephalic. EYES: Pupils equal round and reactive to light, extraocular movements intact, sclera anicteric, conjunctiva are normal. ENT: Nares patent, oropharynx clear without exudates. Moist mucous membranes. NECK: Normal range of motion, supple without lymphadenopathy LUNGS: Breath sounds clear to auscultation bilaterally and equal. No wheezes rales or rhonchi. HEART: Regular rate and rhythm without murmurs ABDOMEN: Soft, nontender, nondistended abdomen. No guarding, no rebound. No masses appreciated. Musculoskeletal: Normal range of motion, no pitting or edema. No cyanosis. NEUROLOGICAL: Cranial nerves grossly intact. Normal speech, normal gait. Normal sensory, motor exams PSYCH: Normal mood, normal affect. SKIN: Skin over the right lower leg medial side there is a swelling which is about 3 x 4 cm with a fluctuant mass like an abscess. And surrounding area all the way to the upper part of the calf, all the way to the foot is erythematous diffusely it is warm and tender to touch. And the abscess is leaking serosanguineous fluid. Course - Re-evaluation Re-evalutation: 04/05/17 09:59 Patient Castaneda was consulted with the surgeon organ tuner electronic and currently being admitted to his service. - Vital Signs Vital signs: Temp Pulse Resp BP Pulse Ox 98.3 F 92 16 144/76 H 99 04/05/17 08:42 04/05/17 08:42 04/05/17 08:42 04/05/17 08:42 04/05/17 08:42 - Laboratory Result Diagrams: 04/05/17 09:40 04/05/17 09:40 Discharge - Discharge Clinical Impression: Cellulitis and abscess of left leg, Abscess, Cellulitis of right lower extremity Disposition: ADMITTED INPATIENT Admitting Provider: Surgicalist
[2017-04-05 10:06] LABS: ABSOLUTE EOSINOPHILS # (AUTO) 0.1 10^3/uL (0.0-0.6); ABSOLUTE LYMPHOCYTES (AUTO) 1.3 10^3/uL (0.5-4.7); ABSOLUTE MONOCYTES (AUTO) 1.5 10^3/uL (0.1-1.4); ABSOLUTE NEUT (AUTO) 14.1 10^3/uL (1.7-8.2); BASOPHILS % (AUTO) 0.1 % (0-2); EOSINOPHILS % (AUTO) 0.4 % (0-6); HEMATOCRIT 40.4 % (37.9-51.0); HEMOGLOBIN 13.3 g/dL (13.5-17.0); LYMPHOCYTES % (AUTO) 7.7 % (13-45); MEAN CORPUSCULAR HEMOGLOBIN 28.9 pg (27.0-33.4); MEAN CORPUSCULAR VOLUME 88 fl (80-97); MONOCYTES % (AUTO) 8.8 % (3-13); PLATELET COUNT 209 10^3/uL (150-450); RED BLOOD COUNT 4.61 10^6/uL (4.35-5.55); RED CELL DISTRIBUTION WIDTH 14.2 % (11.5-14.0); TOTAL CELLS COUNTED % (AUTO) 100 %; WHITE BLOOD COUNT 16.9 10^3/uL (4.0-10.5)
[2017-04-05 10:34] LABS: ALANINE AMINOTRANSFERASE 43 U/L (21-72); ALBUMIN 3.9 g/dL (3.5-5.0); ALKALINE PHOSPHATASE 65 U/L (38-126); ANION GAP 11 (5-19); ASPARTATE AMINO TRANSFERASE 22 U/L (17-59); BILIRUBIN,DIRECT 0.4 mg/dL (0.0-0.4); BILIRUBIN,TOTAL 0.6 mg/dL (0.2-1.3); BLOOD UREA NITROGEN 11 mg/dL (7-20); CALCIUM 9.7 mg/dL (8.4-10.2); CARBON DIOXIDE 28 mmol/L (22-30); CHLORIDE 101 mmol/L (98-107); GLUCOSE 104 mg/dL (75-110); POTASSIUM 4.4 mmol/L (3.6-5.0); SODIUM 139.7 mmol/L (137-145); TOTAL PROTEIN 6.7 g/dL (6.3-8.2)
--- NOTE | 2017-04-05 12:29 | PDOC H&P ---
History of Present Illness Admission Date/PCP: 04/05/17 10:10 Patient complains of: pains right lower leg History of Present Illness: CORONA CHRISTINE is a 31 year old male who claims he bumped his right lower leg about6 days ago. He was seen at the ED 2 days ago and given po Keflex ant told to come back if swelling and redness not improved. Today noted more painful swelling and redness along right lower leg medial side. Past Medical History Cardiac Medical History: Denies: Atrial Fibrillation, Congestive Heart Failure, Coronary Artery Disease, DVT, Myocardial Infarction, Hyperlipidema, Hypertension, Peripheral Vascular Disease, Pulmonary Embolism, Heart Murmur Pulmonary Medical History: Denies: Asthma, Bronchitis, Chronic Obstructive Pulmonary Disease (COPD), Intubation, Pneumonia, Respiratory Failure, Sleep Apnea, Tuberculosis Neurological Medical History: Denies: Migraine, Seizures Endocrine Medical History: Denies: Diabetes Mellitus Type 1, Diabetes Mellitus Type 2, Hyperthyroidism, Hypothyroidism Past Surgical History Past Surgical History: Reports: Orthopedic Surgery - right achilles repair Social History Lives with: Family Smoking Status: Current Every Day Smoker Cigarettes Packs Per Day: 1.5 Frequency of Alcohol Use: Occasional Hx Recreational Drug Use: Yes - occasional marijuana use Family History Family History: Reviewed & Not Pertinent Parental Family History Reviewed: Yes - no diabetes Children Family History Reviewed: No Sibling(s) Family History Reviewed.: No Medication/Allergy Home Medications: Cephalexin Monohydrate [Keflex 500 mg Capsule] 500 mg PO Q6 04/05/17 Ibuprofen [Motrin 800 mg Tablet] 800 mg PO Q6 04/05/17 Allergies/Adverse Reactions: No Known Allergies Allergy (Verified 04/05/17 08:37) Review of Systems Constitutional: PRESENT: other - no fever/chills Eyes: PRESENT: other - no visual/hearing problems Cardiovascular: PRESENT: other - no chest pain Respiratory: PRESENT: cough Genitourinary: PRESENT: other - no dysuria Integumentary: PRESENT: other - right lower leg, medial side just above ankle with pains Physical Exam Vital Signs: Temp Pulse Resp BP Pulse Ox 98.3 F 92 16 144/76 H 99 04/05/17 08:42 04/05/17 08:42 04/05/17 08:42 04/05/17 08:42 04/05/17 08:42 General appearance: PRESENT: mild distress Head exam: PRESENT: atraumatic, normocephalic Eye exam: PRESENT: conjunctiva pink Mouth exam: PRESENT: moist Neck exam: PRESENT: full ROM Respiratory exam: PRESENT: clear to auscultation luther Cardiovascular exam: PRESENT: RRR Pulses: PRESENT: normal radial pulses Vascular exam: PRESENT: normal capillary refill GI/Abdominal exam: PRESENT: soft - nontender Rectal exam: PRESENT: deferred Extremities exam: PRESENT: full ROM Musculoskeletal exam: PRESENT: full ROM Neurological exam: PRESENT: alert, oriented to person, oriented to place, oriented to time, oriented to situation Psychiatric exam: PRESENT: appropriate affect Skin exam: PRESENT: erythema - around right lower leg, normal color, warm Assessment & Plan - Diagnosis (1) Cellulitis and abscess of right leg Is this a current diagnosis for this admission?: Yes (2) Cellulitis of right lower extremity Is this a current diagnosis for this admission?: Yes - Time Time Spent: 30 to 50 Minutes - Inpatient Certification Based on my medical assessment, after consideration of the patient's comorbidities, presenting symptoms, or acuity I expect that the services needed warrant INPATIENT care.: No I certify that my determination is in accordance with my understanding of Medicare's requirements for reasonable and necessary INPATIENT services [42 CFR 412.3e].: Yes Medical Necessity: Need For IV Fluids, Need for IV Antibiotics, Need for Surgery - Plan Summary Plan Summary: Continue antibiotics For I&D right lower leg abscess
[2017-04-05] MEDS ORDERED: LIDOCAINE 0.5% INJ-PF (5 MG/ML) 50 ML SDV ONE (12:46)
[2017-04-05] MEDS ORDERED: PIPERACILLIN SODIUM/TAZOBACTAM 3.375 GM in NORMAL SALINE 100 ML IV PRN (13:29)
[2017-04-05] MEDS ORDERED: KETAMINE HCL INJ 500 MG/10 ML VIAL ONE (16:08)
[2017-04-05] MEDS ORDERED: ACETAMINOPHEN 100 ML IV ONE (16:08)
[2017-04-05] MEDS ORDERED: MIDAZOLAM 2 MG/2 ML INJ ONE (16:08)
[2017-04-05] MEDS ORDERED: PROPOFOL INJ 200 MG/20 ML VIAL IV ONE (16:08)
[2017-04-05] MEDS ORDERED: FENTANYL CITRATE INJ/PF 250 MCG/5 ML AMPULE ONE (16:08)
[2017-04-05] MEDS ORDERED: ONDANSETRON HCL INJ/PF 4 MG/2 ML SDV IV PRN (16:52)
[2017-04-05] MEDS ORDERED: DIPHENHYDRAMINE HCL 50 MG/ML VIAL IV PRN (16:52)
[2017-04-05] MEDS ORDERED: OXYCODONE-ACETAMINOPHEN 5-325 MG TABLET PO PRN ×2 (16:52)
[2017-04-05] MEDS ORDERED: FENTANYL CITRATE INJ/PF 100 MCG/2 ML AMPUL IV PRN ×3 (16:52)
[2017-04-05] MEDS ORDERED: MEPERIDINE HCL/PF INJ 25 MG/1 ML DISP.SYRIN IV PRN (16:52)
[2017-04-05] MEDS ORDERED: MORPHINE SULFATE 10 MG/ML INJ IV PRN (16:52)
[2017-04-05] MEDS ORDERED: PROMETHAZINE HCL INJ 25 MG/1 ML VIAL IV PRN ×2 (16:52)
[2017-04-05] MEDS ORDERED: HYDROMORPHONE HCL INJ/PF 2 MG/ML AMPULE IV PRN (17:26)
[2017-04-05] MEDS ORDERED: NORMAL SALINE 1000 ML 1,000 ML IV PRN (17:27)
--- NOTE | 2017-04-05 19:28 | OPERATIVE REPORT E ---
Operative Report NAME: CORONA CHRISTINE : 1985 AGE: 31Y DATE OF SURGERY: 04/05/2017 ROOM: ED05 PREOPERATIVE DIAGNOSIS: Abscess of the right lower leg. POSTOPERATIVE DIAGNOSIS: Subfascial abscess, right lower leg. OPERATION: Incision and drainage of 9 x 6 x 4 cm subfascial abscess of the right lower leg. ANESTHESIA: Local MAC SURGEON: DEONNA PONCE M.D. INDICATION: This is a 31-year-old male who bumped his right leg about a week ago. This gradually got swollen, erythematous, and more painful. Patient seen in the ED where patient has an obvious large abscess of the right lower leg. Patient was seen in the ED 2 days ago and given p.o. Keflex with no improvement. DESCRIPTION OF PROCEDURE: Patient was placed in supine position after adequate IV sedation. Patient then placed in the supine position and the right lower leg prepped and draped in the usual sterile fashion. Local anesthesia infiltrated along the elevated fluctuant area on the right lower leg just above the ankle. Next, a transverse incision was made and about a 4 cm incision done. Incision deepened down to the subcu and through the fascia. Patient then noted to have extrusion of a lot of purulent and whitish fluid. The area was able to be bluntly dissected with a finger and a lot of pus extruded out. Cultures were obtained. Following this, with the use of pulse lavage, the cavity was then irrigated with about 3 L of saline. The cavity afterwards measured roughly about 9 cm long x 6 cm wide and 4 cm deep. Adequate hemostasis was noted. It was subsequently packed with a bottle of 1/2 inch Xeroform gauze. A sterile dressing was placed over the operative site. Needle, instrument, sponge count were all correct. ESTIMATED BLOOD LOSS: About 20 mL. DISPOSITION: Patient then brought to recovery room in satisfactory condition. DICTATING PHYSICIAN: DEONNA PONCE M.D. [id number] PHY#: [id number] ID: [id number] JOB#: [id number] ACCT: [id number] cc:DEONNA PONCE M.D. >
[2017-04-05] MEDS ORDERED: PIPERACILLIN SODIUM/TAZOBACTAM 3.375 GM in NORMAL SALINE 100 ML IV ONE (22:30)
[2017-04-05 22:49] VITALS: BP 144/76
--- NOTE | 2017-04-05 23:13 | DISCHARGE SUMMARY E ---
Discharge Summary NAME: CORONA CHRISTINE : 1985 AGE: 31Y ADMITTED: 04/05/2017 DISCHARGED: 04/05/2017 FINAL DIAGNOSIS: Abscess of the right lower leg, subfascial. PROCEDURE: Incision and drainage of subfascial abscess right lower leg measuring 16 cm x 9 cm x 4 cm deep. HOSPITAL COURSE: The patient tolerated the procedure well and started IV antibiotics. He felt better post I and D and discharged on p.o. Keflex 500 mg p.o. q.i.d. and a prescription for Toradol 10 mg p.o. q.8 hours p.r.n. DISCHARGE INSTRUCTION: The patient to be [facility] up at [facility] on Monday04/07/17 for removal of packing. DICTATING PHYSICIAN: DEONNA PONCE M.D. [id number] PHY#: [id number] ID: [id number] JOB#: [id number] ACCT: [id number] cc:DEONNA PONCE M.D. >
[2017-04-06] MEDS ORDERED: PIPERACILLIN SODIUM/TAZOBACTAM 3.375 GM in NORMAL SALINE 100 ML IV SCH ×2
== END 2017-04-05 23:30 | disposition home or self-care (01) ==
LOC: ER 08:35 → EH 10:10 → UNDOADMIN 10:10 → 2S 15:03 → ASU 15:03
PROVIDERS: ATTEND Surgery
PROC: 0J9N0ZX Drainage of Right Lower Leg Subcutaneous Tissue and Fascia, Open Approach, Diagnostic (ICD-10-PCS; principal; 2017-04-05 16:30)
DX: L02.415 Cutaneous abscess of right lower limb (principal); L03.115 Cellulitis of right lower limb; B95.61 Methicillin susceptible Staphylococcus aureus infection as the cause of diseases classified elsewhere; B95.4 Other streptococcus as the cause of diseases classified elsewhere; F17.210 Nicotine dependence, cigarettes, uncomplicated; F12.90 Cannabis use, unspecified, uncomplicated
CPT/HCPCS: 99284; 36415; 87075; 87070; 87040; 87205; 85025; 87077; 80053; 87186; 27603; J2250; J3010; J3490 ×2; J1170; J2704; J2543; J0131; 400

== ENCOUNTER 2017-04-07 09:15 | Observation (INO) | payer SELFPAY ==
--- NOTE | 2017-04-07 10:06 | ER Document Report ---
HPI - HPI Patient complains to provider of: Wound recheck Onset: Last week Onset/Duration: Better Quality of pain: Achy Pain Level: 1 Context: Patient states that he had an abscess to his right lower leg surgically drained 3 days ago. Patient denies any fever. Patient states that tenderness has improved as well as swelling. Patient has been compliant with his antibiotics. Laboratory called this morning stating that patient did have a preliminary positive blood culture positive for gram-positive cocci in chain. Associated Symptoms: Other - Right lower leg wound recheck. denies: Fever Exacerbated by: Movement Relieved by: Denies Similar symptoms previously: No Recently seen / treated by doctor: Yes - ROS ROS below otherwise negative: Yes Systems Reviewed and Negative: Yes All other systems reviewed and negative - CONSTITUTIONAL Constitutional: DENIES: Fever, Chills - CARDIOVASCULAR Cardiovascular: DENIES: Chest pain - RESPIRATORY Respiratory: DENIES: Coughing - GASTROINTESTINAL Gastrointestinal: DENIES: Nausea - MUSCULOSKELETAL Musculoskeletal: REPORTS: Extremity pain, Swelling - DERM Skin Color: Erythema Notes: Open wound to right lower leg Past Medical History - General Information source: Patient - Social History Smoking Status: Current Every Day Smoker Frequency of alcohol use: Social Drug Abuse: Marijuana Family History: Reviewed & Not Pertinent Patient has suicidal ideation: No Patient has homicidal ideation: No - Medical History Medical History: Negative - Past Medical History Cardiac Medical History: Denies: Hx Atrial Fibrillation, Hx Congestive Heart Failure, Hx Coronary Artery Disease, Hx DVT, Hx Heart Attack, Hx Hypercholesterolemia, Hx Hypertension, Hx Peripheral Vascular Disease, Hx Pulmonary Embolism, Hx Heart Murmur Pulmonary Medical History: Denies: Hx Asthma, Hx Bronchitis, Hx COPD, Hx Pneumonia, Hx Intubation, Hx Respiratory Failure, Hx Sleep Apnea, Hx Tuberculosis Neurological Medical History: Denies: Hx Cerebrovascular Accident, Hx Migraine, Hx Seizures Endocrine Medical History: Denies: Hx Diabetes Mellitus Type 1, Hx Diabetes Mellitus Type 2, Hx Graves' Disease, Hx Hyperthyroidism, Hx Hypothyroidism Renal/ Medical History: Denies: Hx Peritoneal Dialysis Past Surgical History: Reports: Hx Orthopedic Surgery - right achilles repair Vertical Provider Document - CONSTITUTIONAL Agree With Documented VS: Yes Exam Limitations: No Limitations General Appearance: WD/WN, No Apparent Distress - INFECTION CONTROL TRAVEL OUTSIDE OF THE [place] IN LAST 30 DAYS: No - HEENT HEENT: Atraumatic, Normocephalic - NECK Neck: Normal Inspection - RESPIRATORY Respiratory: No Respiratory Distress O2 Sat by Pulse Oximetry: 99 - CARDIOVASCULAR Pulses: Normal: Dorsalis pedis - MUSCULOSKELETAL/EXTREMETIES Musculoskeletal/Extremeties: MAEW, Tender - Mild tenderness to the right lower extremity, Edema - NEURO Level of Consciousness: Awake, Alert, Appropriate Motor/Sensory: No Motor Deficit - DERM Integumentary: Warm, Abscess - Patient with wound to the medial aspect of right lower leg, large amount of packing removed. Patient with erythema and swelling surrounding this wound. No purulent drainage appreciated Course - Re-evaluation Re-evalutation: 04/07/17 10:[address] Purdy who recommends consultation with the surgeon. Spoke with Dr. Schwartz who does agree to evaluate patient. 04/07/17 10:23 Dr. Schwartz examined patient and advises admission. Recommends giving patient Ancef 2 g IV every 8 hours. Also recommends gentle packing of the wound. - Vital Signs Vital signs: Temp Pulse Resp BP Pulse Ox 98.1 F 86 16 151/71 H 99 04/07/17 09:32 04/07/17 09:32 04/07/17 09:32 04/07/17 09:32 04/07/17 09:32 - Laboratory Laboratory results interpreted by me: 04/07/17 10:24 Labs reviewed from previous two visits to the hospital. Discharge - Discharge Clinical Impression: Cellulitis of right lower extremity, Elevated blood pressure reading, Positive blood culture Condition: Stable Disposition: ADMITTED OBSERVATION Admitting Provider: Surgicalist Unit Admitted: Medical Floor
[2017-04-07] MEDS ORDERED: CEFAZOLIN 2 GM/D5W RTU 2 GM/50 ML RTUPB IV SCH ×2 (10:30→18:00)
[2017-04-07] MEDS ORDERED: OXYCODONE-ACETAMINOPHEN 5-325 MG TABLET PO ONE (11:31)
[2017-04-07] MEDS: OXYCODONE-ACETAMINOPHEN 5-325 MG TABLET PO PRN ×2 (15:11→19:51)
[2017-04-07] MEDS ORDERED: ENOXAPARIN SODIUM INJ 40 MG/0.4 ML DISP.SYRIN SUBCUT ONE (15:15)
--- NOTE | 2017-04-07 15:47 | PDOC H&P ---
History of Present Illness Admission Date/PCP: 04/07/17 10:28 Patient complains of: For removal of packing from the leg since nobody at the Surgical clinic today History of Present Illness: CORONA CHRISTINE is a 31 year old male had I&D of large abscessfrom yjr right lower legTue 04/04/17. Came back to the ED for removal of packing since nobody in the surgical clinic today to remove the packing. Packing was removed but the wounsite stii vry red.Also noted to have + blood c/ s from Tue. Packing was removed but there appears to be still considerable cellulitis. Past Medical History Cardiac Medical History: Denies: Atrial Fibrillation, Congestive Heart Failure, Coronary Artery Disease, DVT, Myocardial Infarction, Hyperlipidema, Hypertension, Peripheral Vascular Disease, Pulmonary Embolism, Heart Murmur Pulmonary Medical History: Denies: Asthma, Bronchitis, Chronic Obstructive Pulmonary Disease (COPD), Intubation, Pneumonia, Respiratory Failure, Sleep Apnea, Tuberculosis Neurological Medical History: Denies: Migraine, Seizures Endocrine Medical History: Denies: Diabetes Mellitus Type 1, Diabetes Mellitus Type 2, Hyperthyroidism, Hypothyroidism Past Surgical History Past Surgical History: Reports: Orthopedic Surgery - right achilles repair Social History Smoking Status: Current Every Day Smoker Frequency of Alcohol Use: Occasional Hx Recreational Drug Use: Yes - occasional marijuana use - Advance Directive Resuscitation Status: Full Code Family History Family History: Reviewed & Not Pertinent Parental Family History Reviewed: Yes Children Family History Reviewed: No Sibling(s) Family History Reviewed.: No Medication/Allergy Home Medications: Cephalexin Monohydrate [Keflex 500 mg Capsule] 500 mg PO QID 04/07/17 Ketorolac Tromethamine [Toradol 10 mg Tablet] 10 mg PO Q8HP PRN 04/07/17 Allergies/Adverse Reactions: No Known Allergies Allergy (Verified 04/07/17 09:22) Review of Systems Constitutional: PRESENT: other - no fever/chills Eyes: PRESENT: other - no visual/hearing changes Cardiovascular: PRESENT: other - no chest pains Respiratory: PRESENT: other - no hemoptysis Gastrointestinal: PRESENT: other - no pains Genitourinary: PRESENT: other - no dysuria Musculoskeletal: PRESENT: other - no joint pains. + erythematous,tender swelling right lower leg with minimal discharge Physical Exam Vital Signs: Temp Pulse Resp BP Pulse Ox 98.1 F 86 16 151/71 H 99 03/02/18 09:32 04/07/17 09:32 04/07/17 09:32 04/07/17 09:32 04/07/17 14:28 General appearance: PRESENT: mild distress Head exam: PRESENT: atraumatic Eye exam: PRESENT: conjunctiva pink Mouth exam: PRESENT: dry mucosa Neck exam: PRESENT: full ROM Respiratory exam: PRESENT: clear to auscultation luther Cardiovascular exam: PRESENT: RRR Pulses: PRESENT: normal radial pulses Vascular exam: PRESENT: normal capillary refill GI/Abdominal exam: PRESENT: normal bowel sounds, soft Rectal exam: PRESENT: deferred Skin exam: PRESENT: warm, other - large area of erythematous swelling with tenderness right lwer leg Assessment & Plan - Diagnosis (1) Positive blood culture Is this a current diagnosis for this admission?: Yes (2) Cellulitis of right lower extremity Is this a current diagnosis for this admission?: Yes - Time Time Spent: 30 to 50 Minutes - Inpatient Certification Medical Necessity: Need For IV Fluids, Need for Pain Control, Need for IV Antibiotics - Plan Summary Plan Summary: Repeat blood c/s prior to starting antibiotics IV antibiotics Rt leg elevation
[2017-04-07] MEDS: CEFAZOLIN SODIUM 2 GM in NORMAL SALINE 100 ML IV SCH (17:21)
[2017-04-07] MEDS ORDERED: CEFAZOLIN SODIUM 2 GM in DEXTROSE 5%-WATER 100 ML IV SCH ×2 (18:00→22:00)
[2017-04-08] MEDS: CEFAZOLIN SODIUM 2 GM in NORMAL SALINE 100 ML IV SCH ×2 (01:13→09:28)
[2017-04-08] MEDS: OXYCODONE-ACETAMINOPHEN 5-325 MG TABLET PO PRN ×3 (01:22→13:47)
[2017-04-08 06:58] LABS: ABSOLUTE BASOPHILS # (AUTO) 0.1 10^3/uL (0.0-0.2); ABSOLUTE EOSINOPHILS # (AUTO) 0.4 10^3/uL (0.0-0.6); ABSOLUTE LYMPHOCYTES (AUTO) 1.7 10^3/uL (0.5-4.7); ABSOLUTE MONOCYTES (AUTO) 0.7 10^3/uL (0.1-1.4); ABSOLUTE NEUT (AUTO) 4.9 10^3/uL (1.7-8.2); BASOPHILS % (AUTO) 0.8 % (0-2); EOSINOPHILS % (AUTO) 4.7 % (0-6); HEMATOCRIT 39.6 % (37.9-51.0); HEMOGLOBIN 13.1 g/dL (13.5-17.0); LYMPHOCYTES % (AUTO) 22.1 % (13-45); MEAN CORPUSCULAR HEMOGLOBIN 28.8 pg (27.0-33.4); MEAN CORPUSCULAR VOLUME 87 fl (80-97); MONOCYTES % (AUTO) 9.4 % (3-13); PLATELET COUNT 252 10^3/uL (150-450); RED BLOOD COUNT 4.53 10^6/uL (4.35-5.55); RED CELL DISTRIBUTION WIDTH 14.8 % (11.5-14.0); TOTAL CELLS COUNTED % (AUTO) 100 %; WHITE BLOOD COUNT 7.7 10^3/uL (4.0-10.5)
[2017-04-08] MEDS ORDERED: ENOXAPARIN SODIUM INJ 40 MG/0.4 ML DISP.SYRIN SUBCUT SCH (10:00)
[2017-04-08 11:49] VITALS: BP 143/69
--- NOTE | 2017-04-08 22:58 | DISCHARGE SUMMARY E ---
Discharge Summary NAME: CORONA CHRISTINE : 1985 AGE: 31Y ADMITTED: 04/07/2017 DISCHARGED: 04/08/2017 FINAL DIAGNOSIS: 1. Cellulitis of the left lower leg, post incision and drainage of abscess. 2. Positive blood culture on initial admission result 04/05/2017. HOSPITAL COURSE: The patient admitted on 04/07/17 for cellulitis of the left lower leg and positive blood culture. The left lower leg is still markedly swollen and erythematous on admission on 04/07/17. He was immediately placed on IV antibiotics after cultures were again obtained. This time blood cultures were negative. His leg was elevated and on 04/08/17 the final cultures from the first blood culture on 04/05/2017 showed Staphylococcus aureus sensitive to cephalexin. His white count also on 04/08/17 has come down to normal at around 7000. Also the cellulitis and swelling has markedly come down. He was then discharged improved on 04/08/17 and prescribed to continue Keflex 500 mg p.o. q.i.d. for the next 10 days. The patient to be followed up in the clinic in about 2 weeks. The packing this morning was removed and another packing placed gently. The packing will be removed by the patient the next couple of days and no packing is needed unless he again develops more drainage. DICTATING PHYSICIAN: DEONNA PONCE M.D. [id number] PHY#: [id number] ID: [id number] JOB#: [id number] ACCT: [id number] cc:DEONNA PONCE M.D. >
== END 2017-04-08 17:20 | disposition home or self-care (01) ==
LOC: ER 09:15 → EH 10:28 → 2N 12:07
PROVIDERS: ATTEND Surgery
DX: L03.116 Cellulitis of left lower limb (principal); B95.61 Methicillin susceptible Staphylococcus aureus infection as the cause of diseases classified elsewhere; F17.200 Nicotine dependence, unspecified, uncomplicated; Z48.01 Encounter for change or removal of surgical wound dressing; Z98.890 Other specified postprocedural states
CPT/HCPCS: 99284; 96365; 36415; 87040; 85025; G0378 ×3; J0690 ×3; J1650 ×2

== ENCOUNTER 2018-06-16 12:29 | Inpatient (IN) | payer SELFPAY ==
[2018-06-16] MEDS ORDERED: DEXAMETHASONE SOD PHOS INJ 10 MG/1 ML VIAL IV ONE (12:37)
[2018-06-16] MEDS ORDERED: KETOROLAC TROMETHAMINE INJ/PF 30 MG/1 ML SDV IV ONE (12:37)
[2018-06-16] MEDS ORDERED: CLINDAMYCIN 600 MG/D5W RTU 600 MG/50 ML RTUPB IV ONE (12:37)
--- NOTE | 2018-06-16 12:38 | ER Document Report ---
ED Medical Screen (RME) - General Chief Complaint: Neck Swelling Stated Complaint: SWOLLEN NECK Time Seen by Provider: 06/16/18 12:33 Mode of Arrival: Ambulatory Information source: Patient Notes: Patient is a 33-year-old male with 3-day history of left-sided dental pain which is now progressed to left-sided facial swelling and pain when swallowing. He reports he tried rzbh-tad-tkjpdry remedies but woke up this morning with worsening symptoms. He denies any known fevers but states he woke up through the night with chills. Exam: Facial swelling noted to the left side. Patient speaking in full complete sentences and swallowing without difficulty. I have greeted and performed a rapid initial assessment of this patient. A comprehensive ED assessment and evaluation of the patient, analysis of test results and completion of the medical decision making process will be conducted by additional ED providers. Dictation of this chart was performed using voice recognition software; therefore, there may be some unintended grammatical errors. TRAVEL OUTSIDE OF THE [place] IN LAST 30 DAYS: No - Related Data Allergies/Adverse Reactions: No Known Allergies Allergy (Verified 06/16/18 12:30) Past Medical History - Social History Family history: CAD - Past Medical History Cardiac Medical History: Denies: Hx Atrial Fibrillation, Hx Congestive Heart Failure, Hx Coronary Artery Disease, Hx DVT, Hx Heart Attack, Hx Hypercholesterolemia, Hx Hypertension, Hx Peripheral Vascular Disease, Hx Pulmonary Embolism, Hx Heart Murmur Pulmonary Medical History: Denies: Hx Asthma, Hx Bronchitis, Hx COPD, Hx Pneumonia, Hx Intubation, Hx Respiratory Failure, Hx Sleep Apnea, Hx Tuberculosis Neurological Medical History: Denies: Hx Cerebrovascular Accident, Hx Migraine, Hx Seizures Endocrine Medical History: Denies: Hx Diabetes Mellitus Type 1, Hx Diabetes Mellitus Type 2, Hx Graves' Disease, Hx Hyperthyroidism, Hx Hypothyroidism Renal/ Medical History: Denies: Hx Peritoneal Dialysis Psychiatric Medical History: Denies: Hx Depression Past Surgical History: Reports: Hx Orthopedic Surgery - right achilles repair - Immunizations History of Influenza Vaccine for 11/2016 - 04/2017 Season: Refused Physical Exam - Vital signs Vitals: Temp Pulse Resp BP Pulse Ox 99.2 F 92 16 166/77 H 97 06/16/18 12:33 06/16/18 12:33 06/16/18 12:33 06/16/18 12:33 06/16/18 12:33 Course - Vital Signs Vital signs: Temp Pulse Resp BP Pulse Ox 99.2 F 92 16 166/77 H 97 06/16/18 12:33 06/16/18 12:33 06/16/18 12:33 06/16/18 12:33 06/16/18 12:33
--- NOTE | 2018-06-16 13:16 | ER Document Report ---
ED General - General Chief Complaint: Neck Swelling Stated Complaint: SWOLLEN NECK Time Seen by Provider: 06/16/18 12:33 Mode of Arrival: Ambulatory Notes: Patient is a 33-year-old male, with no recent or significant past medical history that presents to the emergency department for chief complaint of left facial swelling. Patient states that his pain started about 3 days ago got progressively worse, he had pain in his left lower wisdom tooth, painful with eating, and pain with chewing. He notes that the swelling started getting worse yesterday and through this morning so he decided to come to the emergency de partment. He denies having any fevers, but currently describes his pain as a constant aching sensation describes it as a 6 out of 10. He states his had issues with his teeth in the past, and set caps, and cavities, but has not had anything like this before. He denies noting any painful swallowing, difficulty breathing, or difficulty talking. Past Medical History: Denies chronic medical conditions Past Surgical History: I&D of skin abscess Social History: Admits to smoking cigarettes, and occasional alcohol use, occasional marijuana use Family History: Reviewed and noncontributory for presenting illness Allergies: Reviewed, see documented allergy list. REVIEW OF SYSTEMS: Other than noted above, the 12 point review of systems was reviewed with the patient and were negative, all pertinent findings are included in the HPI. PHYSICAL EXAMINATION: Vital signs reviewed, nursing noted reviewed. GENERAL: Patient appears uncomfortable, but in no respiratory distress HEAD: Atraumatic, normocephalic. EYES: Eyes appear normal, extraocular movements intact, sclera anicteric, conjunctiva are normal. ENT: nares patent, oropharynx clear without exudates. Moist mucous membranes, the left lower wisdom tooth, tooth #17, is tender to palpate, without discrete dental abscess, no drainage in the mouth noted. There is tenderness with palpation along the left lateral jaw at the angle of the mandible, and tenderness to palpation of the submandibular gland, and there is soft tissue swelling there, with some mild erythema. There is no tenderness to palpation or fullness in the submental region, the tongue does not appear swollen or lifted. NECK: Normal range of motion, supple without lymphadenopathy, no stridor. LUNGS: Breath sounds clear to auscultation bilaterally and equal. No wheezes rales or rhonchi, or stridor. HEART: Regular rate and rhythm without murmurs ABDOMEN: Soft, nontender, normoactive bowel sounds. No rebound, guarding, or rigidity. No masses appreciated. EXTREMITIES: Nontender, good range of motion, no pitting or edema. NEUROLOGICAL: No focal neurological deficits. Moves all extremities spontaneously Motor and sensory grossly intact on exam. PSYCH: Normal mood, normal affect. SKIN: Warm, Dry, normal turgor, no rashes or lesions noted on exposed skin TRAVEL OUTSIDE OF THE [place] IN LAST 30 DAYS: No - Related Data Allergies/Adverse Reactions: No Known Allergies Allergy (Verified 06/16/18 12:30) Past Medical History - General Information source: Patient - Social History Smoking Status: Current Every Day Smoker Chew tobacco use (# tins/day): No Frequency of alcohol use: Heavy Family History: Reviewed & Not Pertinent Patient has suicidal ideation: No Patient has homicidal ideation: No - Past Medical History Cardiac Medical History: Denies: Hx Atrial Fibrillation, Hx Congestive Heart Failure, Hx Coronary Artery Disease, Hx DVT, Hx Heart Attack, Hx Hypercholesterolemia, Hx Hypertension, Hx Peripheral Vascular Disease, Hx Pulmonary Embolism, Hx Heart Murmur Pulmonary Medical History: Denies: Hx Asthma, Hx Bronchitis, Hx COPD, Hx Pneumonia, Hx Intubation, Hx Respiratory Failure, Hx Sleep Apnea, Hx Tuberculosis Neurological Medical History: Denies: Hx Cerebrovascular Accident, Hx Migraine, Hx Seizures Endocrine Medical History: Denies: Hx Diabetes Mellitus Type 1, Hx Diabetes Mellitus Type 2, Hx Graves' Disease, Hx Hyperthyroidism, Hx Hypothyroidism Renal/ Medical History: Denies: Hx Peritoneal Dialysis Psychiatric Medical History: Denies: Hx Depression Past Surgical History: Reports: Hx Orthopedic Surgery - right achilles repair Physical Exam - Vital signs Vitals: Temp Pulse Resp BP Pulse Ox 99.2 F 92 16 166/77 H 97 06/16/18 12:33 06/16/18 12:33 06/16/18 12:33 06/16/18 12:33 06/16/18 12:33 Course - Re-evaluation Re-evalutation: Patient seen and examined vital signs reviewed. Laboratory data and imaging were ordered as appropriate for the patient's presenting symptoms and complaint, with consideration of any critical or life threatening conditions that may be associated with their obtained history and exam as noted above. Patient was treated with IV clindamycin, IV fluids, IV Decadron, and Toradol. Results were reviewed when available and demonstrated CT imaging that demonstrated left lower periosteal abscess associated with the wisdom tooth, and submandibular gland inflammation, and facial soft tissue swelling and inflammation. I discussed this case with the on-call ENT, he preferred and deferred this to oral surgery as he does not deal with teeth. I placed a call to [facility], to discuss this, however they did not have an oral surgeon on-call, therefore then placed another call to [facility], he did have an oral surgeon on-call, Dr. Anaya who I had a pleasant conversation with, he stated that it was appropriate treatment at this time, in his opinion, in conjunction with the presentation of this patient, would be to admit him with IV antibiotics, given that he did have a white count with inflammation of the submandibular gland, and on Monday be discharged, to see an oral surgeon to have his tooth extracted, based on our conversation, we did not feel that it was necessary to transfer the patient to [facility], for his current condition, but if his condition worsen, that it may be warranted. The patient was re-evaluated and was protecting his airway, he states that his pain was improved, is able to open his mouth, without difficulty. Evaluation was most consistent with dental abscess, facial cellulitis, leukocytosis Results were discussed with the patient at this point after careful consideration I feel that that patient should be admitted to the hospital. This was discussed with the patient that it is in the best interest for their care to be admitted for further evaluation and management. Patient agreed with this plan of care. A call was placed to the admitted physician, Fabiola Mariscal CNP who graciously accepted the patient onto their service. *Note is created using voice recognition software and may contain spelling, syntax or grammatical errors. Laboratory 06/16/18 06/16/18 12:55 12:55 WBC 16.9 H RBC 5.31 Hgb 16.0 Hct 48.3 MCV 91 MCH 30.2 MCHC 33.2 RDW 14.3 H Plt Count 124 L Seg Neutrophils % 85.7 H Lymphocytes % 5.4 L Monocytes % 8.6 Eosinophils % 0.2 Basophils % 0.1 Absolute Neutrophils 14.5 H Absolute Lymphocytes 0.9 Absolute Monocytes 1.5 H Absolute Eosinophils 0.0 Absolute Basophils 0.0 Sodium 140.1 Potassium 4.2 Chloride 100 Carbon Dioxide 29 Anion Gap 11 BUN 12 Creatinine 0.74 Est GFR ( Amer) > 60 Est GFR (Non-Af Amer) > 60 Glucose 90 Calcium 9.8 Total Bilirubin 0.8 Direct Bilirubin 0.3 Neonat Total Bilirubin Not Reportable Neonat Direct Bilirubin Not Reportable Neonat Indirect Bili Not Reportable AST 17 ALT 35 Alkaline Phosphatase 71 Total Protein 6.9 Albumin 4.[address] 06/16/18 12:36 IMPRESSION: Advanced dental caries in the left lower wisdom tooth, with buccal subperiosteal abscess at the level of the left mandibular angle - Vital Signs Vital signs: Temp Pulse Resp BP Pulse Ox 99.2 F 92 16 166/77 H 97 06/16/18 12:33 06/16/18 12:33 06/16/18 12:33 06/16/18 12:33 06/16/18 12:33 - Laboratory Result Diagrams: 06/16/18 12:55 06/16/18 12:55 Laboratory results interpreted by me: 06/16/18 12:55 WBC 16.9 H RDW 14.3 H Plt Count 124 L Seg Neutrophils % 85.7 H Lymphocytes % 5.4 L Absolute Neutrophils 14.5 H Absolute Monocytes 1.5 H Discharge - Discharge Clinical Impression: Facial cellulitis, Dental abscess Leukocytosis Qualifiers: Leukocytosis type: unspecified Qualified Code(s): D72.829 - Elevated white bloo d cell count, unspecified Condition: Stable Disposition: ADMITTED INPATIENT Admitting Provider: FABIOLA MARISCAL BASS GUITAR TEACHER Unit Admitted: Medical Floor
[2018-06-16 13:25] LABS: ABSOLUTE LYMPHOCYTES (AUTO) 0.9 10^3/uL (0.5-4.7); ABSOLUTE MONOCYTES (AUTO) 1.5 10^3/uL (0.1-1.4); ABSOLUTE NEUT (AUTO) 14.5 10^3/uL (1.7-8.2); BASOPHILS % (AUTO) 0.1 % (0-2); EOSINOPHILS % (AUTO) 0.2 % (0-6); HEMATOCRIT 48.3 % (37.9-51.0); LYMPHOCYTES % (AUTO) 5.4 % (13-45); MEAN CORPUSCULAR HEMOGLOBIN 30.2 pg (27.0-33.4); MEAN CORPUSCULAR HGB CONC 33.2 g/dL (32.0-36.0); MEAN CORPUSCULAR VOLUME 91 fl (80-97); MONOCYTES % (AUTO) 8.6 % (3-13); PLATELET COUNT 124 10^3/uL (150-450); RED BLOOD COUNT 5.31 10^6/uL (4.35-5.55); RED CELL DISTRIBUTION WIDTH 14.3 % (11.5-14.0); SEGMENTED NEUTROPHILS % (AUTO) 85.7 % (42-78); TOTAL CELLS COUNTED % (AUTO) 100 %; WHITE BLOOD COUNT 16.9 10^3/uL (4.0-10.5)
[2018-06-16 13:47] LABS: ALANINE AMINOTRANSFERASE 35 U/L (21-72); ALBUMIN 4.2 g/dL (3.5-5.0); ALKALINE PHOSPHATASE 71 U/L (38-126); ANION GAP 11 (5-19); ASPARTATE AMINO TRANSFERASE 17 U/L (17-59); BILIRUBIN,DIRECT 0.3 mg/dL (0.0-0.4); BILIRUBIN,TOTAL 0.8 mg/dL (0.2-1.3); BLOOD UREA NITROGEN 12 mg/dL (7-20); CALCIUM 9.8 mg/dL (8.4-10.2); CARBON DIOXIDE 29 mmol/L (22-30); CHLORIDE 100 mmol/L (98-107); GLUCOSE 90 mg/dL (75-110); POTASSIUM 4.2 mmol/L (3.6-5.0); SODIUM 140.1 mmol/L (137-145); TOTAL PROTEIN 6.9 g/dL (6.3-8.2)
--- NOTE | 2018-06-16 14:01 | RADIOLOGY REPORT (SQ) ---
EXAM DESCRIPTION: CT SOFT TISSUE NECK WITH COMPLETED DATE/TIME: 06/16/2018 1:34 pm REASON FOR STUDY: left facial swelling, eval for abscess COMPARISON: None. TECHNIQUE: Post IV contrasted scanning from skull base through lung apices with review of bone, soft tissue and lung windows. Reconstructed coronal and sagittal MPR images reviewed. All images stored on PACS. All CT scanners at this facility use dose modulation, iterative reconstruction, and/or weight based d osing when appropriate to reduce radiation dose to as low as reasonably achievable (ALARA). [facility]: Dose Right [facility]: CareDose [facility]: Dose Right [facility]: Teradose 4D [facility]: [employer] CONTRAST TYPE AND DOSE: contrast/concentration: Isovue 350.00 mg/ml; Total Contrast Delivered: 75.0 ml; Total Saline Delivered: 55.0 ml RENAL FUNCTION: None required. The patient is less than 50 years old. RADIATION DOSE: CT Rad equipment meets quality standard of care and radiation dose reduction techniq ues were employed. CTDIvol: 18.1 mGy. DLP: 540 mGy-cm. . LIMITATIONS: None. FINDINGS: On the multiples site of the left mandible synovial lumen posterior left lower wisdom toot h, a subperiosteal abscess is present measuring 2.6 cm AP x 1.3 cm transverse by 1.4 cm craniocaudad. Advanced dental caries in the wisdom tooth. There is diffuse inflammation throughout the left floor of mouth extending into the regulatory affairs analyst and reed bmandibular spaces. Multiple enlarged 1 cm short axis left submandibular lymph nodes are present. T here is asymmetric swelling of the left submandibular gland, and soft tissue facial cellulitis with s oft tissue stranding over the left submandibular region. Local inflammation along the left floor of mouth causes deviation of the hypopharynx towards the righ t, and mild leftward lateral hypopharyngeal airway narrowing. These changes are best shown on axial images 34-54, and coronal image 44. Remainder of the neck soft tissue study is otherwise unremarkable. Lung apices are clear. Bony stru ctures unremarkable. Orbits, paranasal sinuses, inferior brain parenchyma in the field of view unrem arkable. IMPRESSION: Advanced dental caries in the left lower wisdom tooth, with buccal subperiosteal abscess at the level of the left mandibular angle TECHNICAL DOCUMENTATION: JOB ID: [id number] Quality ID # [id number]: Final reports with documentation of one or more dose reduction techniques (e.g., Au tomated exposure control, adjustment of the mA and/or kV according to patient size, use of iterative reconstruction technique) 2010 [employer]- All Rights Reserved Reading location - IP/workstation name: [email or web address]
[2018-06-16] MEDS ORDERED: RINGERS SOLUTION,LACTATED 1,000 ML IV ONE (14:15)
[2018-06-16] MEDS ORDERED: NICOTINE 21 MG/24 HR PATCH.TD24 TD ONE (14:24)
[2018-06-16] MEDS ORDERED: ONDANSETRON HCL INJ/PF 4 MG/2 ML SDV IV PRN (15:16)
[2018-06-16] MEDS ORDERED: ACETAMINOPHEN 325 MG TABLET PO PRN (15:16)
[2018-06-16] MEDS ORDERED: NICOTINE 14 MG/24 HR PATCH.TD24 TD ONE (15:45)
--- NOTE | 2018-06-16 16:26 | PDOC H&P ---
History of Present Illness Admission Date/PCP: 06/16/18 15:54 Patient complains of: FACIAL SWELLING. JAW PAIN. History of Present Illness: CORONA CHRISTINE is a 33 year old male with no significant past medical history presented to the emergency department for jaw pain and left facial swelling. Patient states that his pain started 3 days ago and got progressively worse, this morning he woke up with left facial swelling and difficulty swallowing, which prompted him to come to the emergency department. The patient states he is experiencing dull, constant left facial pain, exacerbated when attempting to eat solid food. The patient states he has only been drinking protein shakes for the last few days because he cannot tolerate solid foods. The patient endorses mild difficulty managing his oral secretions. CT soft tissue neck reveals advanced dental caries in the left lower wisdom tooth, mucosal subperiosteal abscess at the level of the mandibular angle, soft tissue facial cellulitis with soft tissue stranding over the left submandibular region. ED MD discussed case with oral surgeon at [facility], Dr. Anaya, who recommended inpatient treatment with IV antibiotics with plan for discharge on Monday to see an oral surgeon to have his tooth extracted. Upon evaluation, the patient is resting comfortably in bed with family at the bedside. There is notable swelling to the left mandibular area. Is tender to palpation. The patient is able to speak freely without difficulty, he is able to manage his oral secretions, the patient is attempting to eat solid food because he is "so hungry."The tongue does not appear swollen. The patient does have difficulty fully opening his mouth (MALLAMPATI IV) due to left facial pain. Plan to admit to Hospitalist service for facial cellulitis and dental abscess. Past Medical History Cardiac Medical History: Denies: Atrial Fibrillation, Congestive Heart Failure, Coronary Artery Disease, DVT, Myocardial Infarction, Hyperlipidema, Hypertension, Peripheral Vascular Disease, Pulmonary Embolism, Heart Murmur Pulmonary Medical History: Denies: Asthma, Bronchitis, Chronic Obstructive Pulmonary Disease (COPD), Intubation, Pneumonia, Respiratory Failure, Sleep Apnea, Tuberculosis Neurological Medical History: Denies: Migraine, Seizures Endocrine Medical History: Denies: Diabetes Mellitus Type 1, Diabetes Mellitus Type 2, Hyperthyroidism, Hypothyroidism Psychiatric Medical History: Denies: Depression Infectious History Note: ABSCESS TO RLE - SURGICALLY REMOVED Past Surgical History Past Surgical History: Reports: Orthopedic Surgery - right achilles repair, Other - RLE ABSCESS REMOVAL Social History Information Source: Patient Lives with: Family Smoking Status: Current Every Day Smoker Cigarettes Packs Per Day: 1.5 Number of Years Smokin Frequency of Alcohol Use: Occasional Hx Recreational Drug Use: Yes - occasional marijuana use Drugs: Marijuana Hx Prescription Drug Abuse: No - Advance Directive Resuscitation Status: Full Code Family History Family History: Reviewed & Not Pertinent Parental Family History Reviewed: Yes Children Family History Reviewed: NA Sibling(s) Family History Reviewed.: Unknown Medication/Allergy Home Medications: Multivitamin [Tab-A-Joaquín (Multiple Vitamin) Tablet] 1 tab PO DAILY 06/16/18 Allergies/Adverse Reactions: No Known Allergies Allergy (Verified 06/16/18 12:30) Review of Systems Constitutional: ABSENT: fever(s), headache(s) Eyes: ABSENT: visual disturbances Ears: ABSENT: hearing changes Nose, Mouth, and Throat: PRESENT: mouth pain, sore throat Cardiovascular: ABSENT: chest pain Respiratory: PRESENT: sputum. ABSENT: dyspnea Gastrointestinal: ABSENT: abdominal pain Genitourinary: ABSENT: dysuria Musculoskeletal: ABSENT: deformity, muscle weakness Integumentary: PRESENT: erythema, other - EDEMA TO L MANDIBLE Neurological: ABSENT: vertigo, weakness Psychiatric: ABSENT: anxiety, depression Endocrine: PRESENT: heat intolerance Hematologic/Lymphatic: ABSENT: easy bleeding Physical Exam Vital Signs: Temp Pulse Resp BP Pulse Ox 99.2 F 92 16 166/77 H 97 06/16/18 12:33 06/16/18 12:33 06/16/18 12:33 06/16/18 12:33 06/16/18 12:33 Intake & Output 06/15/18 06/16/18 06/17/18 06:59 06:59 06:59 Intake Total 50 Balance 50 Weight 102.4 kg General appearance: PRESENT: well-developed, well-nourished Eye exam: PRESENT: PERRLA Mouth exam: PRESENT: moist, tongue midline Teeth exam: PRESENT: dental caries Neck exam: PRESENT: full ROM, tenderness - L lateral neck and jaw tenderness. ABSENT: tracheal deviation Respiratory exam: PRESENT: clear to auscultation luther, symmetrical, unlabored. ABSENT: stridor Cardiovascular exam: PRESENT: RRR Pulses: PRESENT: normal radial pulses, normal dorsalis pedis pul GI/Abdominal exam: PRESENT: soft. ABSENT: distended, tenderness Rectal exam: PRESENT: deferred Extremities exam: PRESENT: full ROM. ABSENT: pedal edema Musculoskeletal exam: PRESENT: ambulatory, full ROM Neurological exam: PRESENT: alert, awake, oriented to person, oriented to place, oriented to time, oriented to situation Psychiatric exam: PRESENT: appropriate affect Skin exam: PRESENT: dry, intact, normal color, other - L lateral mandibular cellulitis - mild erythema, edema and + TTP Results Laboratory Results: 06/16/18 12:55 06/16/18 12:55 06/16/18 06/16/18 12:55 12:55 WBC 16.9 H RBC 5.31 Hgb 16.0 Hct 48.3 MCV 91 MCH 30.2 MCHC 33.2 RDW 14.3 H Plt Count 124 L Seg Neutrophils % 85.7 H Lymphocytes % 5.4 L Monocytes % 8.6 Eosinophils % 0.2 Basophils % 0.1 Absolute Neutrophils 14.5 H Absolute Lymphocytes 0.9 Absolute Monocytes 1.5 H Absolute Eosinophils 0.0 Absolute Basophils 0.0 Sodium 140.1 Potassium 4.2 Chloride 100 Carbon Dioxide 29 Anion Gap 11 BUN 12 Creatinine 0.74 Est GFR ( Amer) > 60 Est GFR (Non-Af Amer) > 60 Glucose 90 Calcium 9.8 Total Bilirubin 0.8 AST 17 ALT 35 Alkaline Phosphatase 71 Total Protein 6.9 Albumin 4.2 Impressions: Soft Tissue Neck CT 06/16/18 12:36 IMPRESSION: Advanced dental caries in the left lower wisdom tooth, with buccal subperiosteal abscess at the level of the left mandibular angle Status: Imported from PACS Assessment and Plan - Diagnosis (1) Facial cellulitis Is this a current diagnosis for this admission?: Yes Plan: Secondary to dental abscess Soft tissue cellulitis seen on CT Patient endorses difficulty swallowing Monitor closely for airway swelling, tongue swelling, inability to manage secretions Clindamycin 600mg IV q6hr ED MD consulted [facility] oral surgeon, Dr. Anaya, who recommends 2 days of inpatient treatment with IV antibiotics and follow up with outpatient oral surgeon on Monday (2) Dental abscess Is this a current diagnosis for this admission?: Yes Plan: Secondary to dental caries and poor oral hygiene Tylenol and toradol for mild to moderate pain IV morphine for severe pain Plan for follow up with oral surgeon on Monday - Time Time Spent with patient: 15-24 minutes Medications reviewed and adjusted accordingly: Yes Anticipated discharge: Home Within: within 48 hours - Inpatient Certification Based on my medical assessment, after consideration of the patient's comorbidities, presenting symptoms, or acuity I expect that the services needed warrant INPATIENT care.: Yes I certify that my determination is in accordance with my understanding of Medicare's requirements for reasonable and necessary INPATIENT services [42 CFR 412.3e].: Yes Medical Necessity: Need For Continuous Telemetry Monitoring, Need for IV Antibiotics - Plan Summary Plan Summary: IV CLINDAMYCIN. FOLLOW UP WITH DR. MIKE CASTELAN ([facility]) ON MONDAY
[2018-06-16] MEDS ORDERED: METHYLPREDNISOLONE INJ 125 MG/2 ML SDV IV ONE (16:45)
[2018-06-16] MEDS ORDERED: MORPHINE SULFATE 10 MG/ML INJ IV PRN (17:18)
[2018-06-16] MEDS: KETOROLAC TROMETHAMINE INJ/PF 30 MG/1 ML SDV IV PRN (18:02)
[2018-06-16] MEDS: CLINDAMYCIN 600 MG/D5W RTU 600 MG/50 ML RTUPB IV SCH (20:16)
[2018-06-16] MEDS: FAMOTIDINE INJ/PF 20 MG/2 ML SDV IV SCH (21:10)
[2018-06-17] MEDS: KETOROLAC TROMETHAMINE INJ/PF 30 MG/1 ML SDV IV PRN ×4 (00:03→19:35)
[2018-06-17] MEDS: CLINDAMYCIN 600 MG/D5W RTU 600 MG/50 ML RTUPB IV SCH ×2 (03:14→08:28)
[2018-06-17 06:07] LABS: HEMATOCRIT 45.3 % (37.9-51.0); MEAN CORPUSCULAR HEMOGLOBIN 30.2 pg (27.0-33.4); MEAN CORPUSCULAR HGB CONC 33.1 g/dL (32.0-36.0); MEAN CORPUSCULAR VOLUME 91 fl (80-97); PLATELET COUNT 128 10^3/uL (150-450); RED BLOOD COUNT 4.97 10^6/uL (4.35-5.55); RED CELL DISTRIBUTION WIDTH 13.9 % (11.5-14.0); WHITE BLOOD COUNT 20.5 10^3/uL (4.0-10.5)
[2018-06-17 06:28] LABS: ALANINE AMINOTRANSFERASE 22 U/L (21-72); ALBUMIN 3.7 g/dL (3.5-5.0); ALKALINE PHOSPHATASE 61 U/L (38-126); ANION GAP 13 (5-19); ASPARTATE AMINO TRANSFERASE 14 U/L (17-59); BILIRUBIN,DIRECT 0.2 mg/dL (0.0-0.4); BILIRUBIN,TOTAL 0.5 mg/dL (0.2-1.3); BLOOD UREA NITROGEN 22 mg/dL (7-20); CALCIUM 9.6 mg/dL (8.4-10.2); CARBON DIOXIDE 22 mmol/L (22-30); CHLORIDE 105 mmol/L (98-107); GLUCOSE 135 mg/dL (75-110); PHOSPHORUS 3.7 mg/dL (2.5-4.5); POTASSIUM 4.4 mmol/L (3.6-5.0); SODIUM 139.7 mmol/L (137-145); TOTAL PROTEIN 6.2 g/dL (6.3-8.2)
[2018-06-17] MEDS: FAMOTIDINE INJ/PF 20 MG/2 ML SDV IV SCH ×2 (10:32→21:48)
[2018-06-17] MEDS ORDERED: HYDROMORPHONE HCL INJ/PF 2 MG/ML AMPULE ONE ×2 (11:34→18:14)
[2018-06-17] MEDS ORDERED: HYDROMORPHONE HCL INJ/PF 2 MG/ML AMPULE IV ONE (12:00)
[2018-06-17] MEDS ORDERED: AMPICILLIN SODIUM/SULBACTAM NA 2 GM in NORMAL SALINE 100 ML IV SCH (13:30)
[2018-06-17] MEDS ORDERED: HYDROMORPHONE HCL INJ/PF 2 MG/ML AMPULE IV PRN (14:38)
[2018-06-17] MEDS ORDERED: ACETAMINOPHEN 325 MG TABLET PO PRN (14:40)
[2018-06-17] MEDS: AMPICILLIN SODIUM/SULBACTAM NA 3 GM in NORMAL SALINE 100 ML IV SCH ×2 (14:41→21:47)
--- NOTE | 2018-06-17 15:46 | PDOC TRANSFER SUMMARY ---
General Admission Date/PCP: 06/16/18 15:54 Admission Date: 06/16/18 Transfer Date: 06/17/18 Accepting Facility: [facility] Accepting Physician: Dr. Calles, Hospialist Resuscitation Status: Full Code - Transfer Diagnosis (1) Facial cellulitis Is this a current diagnosis for this admission?: Yes (2) Dental abscess Is this a current diagnosis for this admission?: Yes - Transfer Medications Home Medications: Multivitamin [Tab-A-Joaquín (Multiple Vitamin) Tablet] 1 tab PO DAILY 06/16/18 Transfer Medications: Current Medications Acetaminophen (Tylenol 325 Mg Tablet) 650 mg PO Q4HP PRN PRN Reason: FOR PAIN OR TEMP Stop: 07/16/18 15:15 Last Admin: 06/16/18 17:10 Dose: 650 mg Documented by: Famotidine (Pepcid Inj/Pf 20 Mg/2 Ml Sdv) 20 mg IV Q12 SELINA Stop: 07/16/18 21:59 Last Admin: 06/17/18 10:32 Dose: 20 mg Documented by: Ampicillin Sodium/Sulbactam (Sodium 3 gm/ Sodium Chloride) 100 mls @ 100 mls/hr IV Q6A SELINA Stop: 06/24/18 14:59 Ketorolac Tromethamine (Toradol Inj/Pf 30 Mg/1 Ml Sdv) 15 mg IV Q6HP PRN PRN Reason: FOR PAIN SCALE 3-4 Stop: 06/21/18 17:19 Last Admin: 06/17/18 12:20 Dose: 15 mg Documented by: Morphine Sulfate (Morphine 10 Mg/Ml Inj) 2 mg IV Q4HP PRN PRN Reason: For Pain Scale 5 Stop: 06/23/18 17:17 Last Admin: 06/17/18 08:32 Dose: 2 mg Documented by: Ondansetron HCl (Zofran Inj/Pf 4 Mg/2 Ml Sdv) 4 mg IV Q6HP PRN PRN Reason: FOR NAUSEA/VOMITING Stop: 07/16/18 15:15 - Allergies Allergies/Adverse Reactions: No Known Allergies Allergy (Verified 06/16/18 12:30) Hospital Course Hospital Course: H&P: CORONA CHRISTINE is a 33 year old male with no significant past medical history presented to the emergency department for jaw pain and left facial swelling. Patient states that his pain started 3 days ago and got progressively worse, this morning he woke up with left facial swelling and difficulty swallowing, which prompted him to come to the emergency department. The patient states he is experiencing dull, constant left facial pain, exacerbated when attempting to eat solid food. The patient states he has only been drinking protein shakes for the last few days because he cannot tolerate solid foods. The patient endorses mild difficulty managing his oral secretions. CT soft tissue neck reveals advanced dental caries in the left lower wisdom tooth, mucosal subperiosteal abscess at the level of the mandibular angle, soft tissue facial cellulitis with soft tissue stranding over the left submandibular region. ED MD discussed case with oral surgeon at [facility], Dr. Anaya, who recommended inpatient treatment with IV antibiotics with plan for discharge on Monday to see an oral surgeon to have his tooth extracted. Upon evaluation, the patient is resting comfortably in bed with family at the bedside. There is notable swelling to the left mandibular area. Is tender to palpation. The patient is able to speak freely without difficulty, he is able to manage his oral secretions, the patient is attempting to eat solid food because he is "so hungry."The tongue does not appear swollen. The patient does have difficulty fully opening his mouth (MALLAMPATI IV) due to left facial pain. Admitted to Hospitalist service for facial cellulitis and dental abscess. HOSPITAL COURSE: 33 y.o. M admitted for facial cellulitis stemming from a dental abscess. CT soft tissue neck reveals advanced dental caries in the left lower wisdom tooth, mucosal subperiosteal abscess at the level of the mandibular angle, soft tissue facial cellulitis with soft tissue stranding over the left submandibular region. The patient was treated with clindamycin 600mg IV q6hr and admitted to [facility]. The following morning, the patient stated he was not feeling better, his jaw pain was getting worse. It was noted on physical exam that the submandible soft tissue cellulitis was now spreading down the left side of his neck. The patient denied any worsening throat pain, difficulty breathing, or difficulty swallow ing. He remained on a clear liquid diet. Laboratory studies reveal a worsening leukocytosis 16-->20. T-max 99.2 overnight. 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 Without ENT or OMFS at [facility], this patient would likely be better serviced at a larger tertiary facility. Luckily, Dr. Jean-Paul Cardona (FS) and Dr. Calles (hospitalist) of [facility], have accepted the patient. Plan to transfer as soon as a bed is available. In the meantime, will change antibiotics from clindamycin to Unasyn (per Dr. Cardona's request). A dditionally, the patient will remain on close airway watch. Physical Exam Vital Signs: Temp Pulse Resp BP Pulse Ox 98.0 F 69 18 144/75 H 99 06/17/18 13:13 06/17/18 13:13 06/17/18 13:13 06/17/18 13:13 06/17/18 13:13 Intake & Output 06/16/18 06/17/18 06/18/18 06:59 06:59 06:59 Intake Total 2200 550 Output Total 575 Balance 1625 550 Weight 105 kg General appearance: PRESENT: well-developed, well-nourished Eye exam: PRESENT: conjunctiva pink, PERRLA Mouth exam: PRESENT: moist, tongue midline Teeth exam: PRESENT: dental caries Throat exam: PRESENT: other - MALLAMPOTI IV. Neck exam: PRESENT: other - L LATERAL SOFT TISSUE CELLULITIS Respiratory exam: PRESENT: clear to auscultation luther, symmetrical, unlabored Cardiovascular exam: PRESENT: RRR Pulses: PRESENT: normal radial pulses, normal dorsalis pedis pul GI/Abdominal exam: PRESENT: soft. ABSENT: distended, tenderness Rectal exam: PRESENT: deferred Extremities exam: PRESENT: full ROM Musculoskeletal exam: PRESENT: full ROM, normal inspection Neurological exam: PRESENT: alert, awake, oriented to person, oriented to place, oriented to time, oriented to situation Psychiatric exam: PRESENT: appropriate affect Skin exam: PRESENT: dry, intact. ABSENT: normal color - SUNBURN ON TRUNK (ABOVE THE WAIST), ARMS, NECK AND HEAD Results Laboratory Results: 06/17/18 05:06 06/17/18 05:06 06/17/18 06/17/18 05:06 05:06 WBC 20.5 H RBC 4.97 Hgb 15.0 Hct 45.3 MCV 91 MCH 30.2 MCHC 33.1 RDW 13.9 Plt Count 128 L Sodium 139.7 Potassium 4.4 Chloride 105 Carbon Dioxide 22 Anion Gap 13 BUN 22 H Creatinine 0.61 Est GFR ( Amer) > 60 Est GFR (Non-Af Amer) > 60 Glucose 135 H Calcium 9.6 Phosphorus 3.7 Magnesium 2.2 Total Bilirubin 0.5 AST 14 L ALT 22 Alkaline Phosphatase 61 Total Protein 6.2 L Albumin 3.7 Impressions: Soft Tissue Neck CT 06/16/18 12:36 IMPRESSION: Advanced dental caries in the left lower wisdom tooth, with buccal subperiosteal abscess at the level of the left mandibular angle Status: Imported from PACS Plan Discharge Plan: TRANSFER TO [facility]. Time Spent: Greater than 30 Minutes
[2018-06-17] MEDS: NORMAL SALINE 1000 ML 1,000 ML IV PRN (16:07)
[2018-06-17] MEDS ORDERED: METHYLPREDNISOLONE INJ 125 MG/2 ML SDV IV ONE (16:44)
--- NOTE | 2018-06-17 17:03 | Progress Note ---
Provider Note Provider Note: Patient is complaining of worsening soft tissue swelling in the submandibular area. Swelling has increased but the difficulty breathing patient denies or worsening difficulty swallowing. Patient assessed by myself and Dr. Oliveira, who agreed that the patient requires a higher level of care. While waiting for transfer to [facility], the patient will be upgraded to [facility]. Continue IV Unasyn, will initiate IV Solu-Medrol [address] patient on scheduled IV Solu- Medrol.
[2018-06-17] MEDS ORDERED: NORMAL SALINE 1000 ML 1,000 ML IV ONE (17:45)
[2018-06-17] MEDS: METHYLPREDNISOLONE INJ 40 MG/1 ML SDV IV SCH ×2 (18:22→23:38)
[2018-06-17] MEDS: HYDROMORPHONE HCL INJ/PF 2 MG/ML AMPULE IV PRN ×2 (18:26→22:47)
[2018-06-17] MEDS ORDERED: METHYLPREDNISOLONE INJ 40 MG/1 ML SDV IV SCH (22:00)
[2018-06-18] MEDS: KETOROLAC TROMETHAMINE INJ/PF 30 MG/1 ML SDV IV PRN ×4 (01:43→22:32)
[2018-06-18] MEDS: AMPICILLIN SODIUM/SULBACTAM NA 3 GM in NORMAL SALINE 100 ML IV SCH ×4 (02:51→20:20)
[2018-06-18] MEDS: HYDROMORPHONE HCL INJ/PF 2 MG/ML AMPULE IV PRN ×6 (02:52→23:38)
[2018-06-18] MEDS: NORMAL SALINE 1000 ML 1,000 ML IV PRN ×2 (04:32→14:01)
[2018-06-18] MEDS: METHYLPREDNISOLONE INJ 40 MG/1 ML SDV IV SCH ×2 (05:34→14:00)
[2018-06-18] MEDS: FAMOTIDINE INJ/PF 20 MG/2 ML SDV IV SCH ×2 (09:35→22:35)
[2018-06-18 11:48] LABS: HEMOGLOBIN 13.8 g/dL (13.5-17.0); MEAN CORPUSCULAR HEMOGLOBIN 29.8 pg (27.0-33.4); MEAN CORPUSCULAR HGB CONC 32.7 g/dL (32.0-36.0); MEAN CORPUSCULAR VOLUME 91 fl (80-97); PLATELET COUNT 120 10^3/uL (150-450); RED BLOOD COUNT 4.61 10^6/uL (4.35-5.55); RED CELL DISTRIBUTION WIDTH 14.3 % (11.5-14.0)
[2018-06-18] MEDS ORDERED: ONDANSETRON HCL INJ/PF 4 MG/2 ML SDV IV PRN (15:00)
[2018-06-18] MEDS ORDERED: MAG HYDROX/AL HYDROX/SIMETH SUSP 30 ML UDCUP PO PRN (15:47)
[2018-06-18] MEDS: METHYLPREDNISOLONE INJ 125 MG/2 ML SDV IV SCH ×2 (17:47→23:45)
--- NOTE | 2018-06-18 20:25 | PDOC PROGRESS REPORT ---
Subjective Progress Note for:: 06/18/18 Subjective:: 33 y.o. M with a H tobacco use presented to [facility] with a dental abscess and facial cellulitis. The patient is awaiting transfer to [facility] to be evaluated by OMFS for a tooth extraction. The patient was upgraded yesterday from MED/TELE to IMCU for closer airway monitoring. Today, the patient states he feels better. States he felt a 'pop' last night and 'tasted something nasty' in his mouth. Soft tissue swelling present to the L jaw, L neck and now under the chin. Patient will remain at [facility] until he is able to transfer to [facility]. Reason For Visit: INFECTED TOOTH Physical Exam Vital Signs: Temp Pulse Resp BP Pulse Ox 98.5 F 62 16 134/64 H 98 06/18/18 19:37 06/18/18 19:37 06/18/18 19:37 06/18/18 19:37 06/18/18 19:37 Intake & Output 06/17/18 06/18/18 06/19/18 06:59 06:59 06:59 Intake Total 2200 3450 1730 Output Total 575 400 Balance 1625 3050 1730 Weight 105 kg 105 kg General appearance: PRESENT: no acute distress, well-developed, well-nourished Head exam: PRESENT: atraumatic, normocephalic Eye exam: PRESENT: conjunctiva pink, EOMI, PERRLA. ABSENT: scleral icterus Ear exam: PRESENT: normal external ear exam Mouth exam: PRESENT: moist, tongue midline Teeth exam: PRESENT: dental caries Throat exam: ABSENT: post pharyngeal erythema Neck exam: PRESENT: other - SOFT TISSUE SWELLING TO L SUBMADIBULAR AREA, SPREADI NG DOWN THE NECK AND UNDER THE CHIN.. ABSENT: carotid bruit, JVD, lymphadenopathy, thyromegaly Respiratory exam: PRESENT: clear to auscultation luther. ABSENT: rales, rhonchi, wheezes Cardiovascular exam: PRESENT: RRR. ABSENT: diastolic murmur, rubs, systolic murmur Pulses: PRESENT: normal dorsalis pedis pul Vascular exam: PRESENT: normal capillary refill GI/Abdominal exam: PRESENT: normal bowel sounds, soft. ABSENT: distended, guarding, mass, organolmegaly, rebound, tenderness Rectal exam: PRESENT: deferred Extremities exam: PRESENT: full ROM. ABSENT: calf tenderness, clubbing, pedal edema Neurological exam: PRESENT: alert, awake, oriented to person, oriented to place, oriented to time, oriented to situation Psychiatric exam: PRESENT: appropriate affect, normal mood Skin exam: PRESENT: dry, intact, warm. ABSENT: cyanosis, rash Results Laboratory Results: 06/18/18 11:34 06/17/18 05:06 06/18/18 11:34 WBC 16.0 H RBC 4.61 Hgb 13.8 Hct 42.0 MCV 91 MCH 29.8 MCHC 32.7 RDW 14.3 H Plt Count 120 L Impressions: Soft Tissue Neck CT 06/16/18 12:36 IMPRESSION: Advanced dental caries in the left lower wisdom tooth, with buccal subperiosteal abscess at the level of the left mandibular angle Status: Imported from PACS Assessment and Plan - Diagnosis (1) Facial cellulitis Is this a current diagnosis for this admission?: Yes Plan: Secondary to dental abscess Soft tissue cellulitis seen on CT Patient endorses difficulty swallowing Monitor closely for airway swelling, tongue swelling, inability to manage secretions Scheduled Unasyn IV Plan to transfer to [facility] for OMFS/surgical extraction of the tooth (2) Dental abscess Is this a current diagnosis for this admission?: Yes Plan: Secondary to dental caries and poor oral hygiene Tylenol and toradol for mild to moderate pain IV morphine for severe pain - Time Time Spent with patient: 15-24 minutes Medications reviewed and adjusted accordingly: Yes Anticipated discharge: Home Within: within 24 hours - Inpatient Certification Based on my medical assessment, after consideration of the patient's comorbidities, presenting symptoms, or acuity I expect that the services needed warrant INPATIENT care.: Yes I certify that my determination is in accordance with my understanding of [facility] 's requirements for reasonable and necessary INPATIENT services [42 CFR 412.3e].: Yes Medical Necessity: Need for IV Antibiotics, Need for Surgery, Risk of Compl ication if Not Cared For in Hospital - Plan Summary Plan Summary: DUE TO WORSENING OF CLINICAL PICTURE YESTERDAY AND UPGRADING LEVEL OF CARE, DO NOT FEEL THAT PATIENT IS APPROPRIATE FOR DISCHARGE. PATIENT IS AWAITING TRANSFER TO [facility].
[2018-06-19] MEDS: NORMAL SALINE 1000 ML 1,000 ML IV PRN ×3 (03:23→21:39)
[2018-06-19] MEDS: AMPICILLIN SODIUM/SULBACTAM NA 3 GM in NORMAL SALINE 100 ML IV SCH ×4 (03:23→21:38)
[2018-06-19] MEDS: HYDROMORPHONE HCL INJ/PF 2 MG/ML AMPULE IV PRN ×5 (03:42→23:35)
[2018-06-19] MEDS: KETOROLAC TROMETHAMINE INJ/PF 30 MG/1 ML SDV IV PRN ×2 (04:37→21:38)
[2018-06-19 05:15] LABS: HEMATOCRIT 42.2 % (37.9-51.0); HEMOGLOBIN 13.8 g/dL (13.5-17.0); MEAN CORPUSCULAR HEMOGLOBIN 29.9 pg (27.0-33.4); MEAN CORPUSCULAR HGB CONC 32.6 g/dL (32.0-36.0); MEAN CORPUSCULAR VOLUME 92 fl (80-97); PLATELET COUNT 134 10^3/uL (150-450); RED BLOOD COUNT 4.59 10^6/uL (4.35-5.55); RED CELL DISTRIBUTION WIDTH 14.2 % (11.5-14.0)
[2018-06-19 05:22] LABS: ALANINE AMINOTRANSFERASE 176 U/L (21-72); ALBUMIN 3.4 g/dL (3.5-5.0); ALKALINE PHOSPHATASE 98 U/L (38-126); ANION GAP 8 (5-19); ASPARTATE AMINO TRANSFERASE 130 U/L (17-59); BILIRUBIN,DIRECT 0.3 mg/dL (0.0-0.4); BILIRUBIN,TOTAL 0.3 mg/dL (0.2-1.3); BLOOD UREA NITROGEN 28 mg/dL (7-20); CALCIUM 10.2 mg/dL (8.4-10.2); CARBON DIOXIDE 30 mmol/L (22-30); CHLORIDE 105 mmol/L (98-107); GLUCOSE 144 mg/dL (75-110); PHOSPHORUS 3.8 mg/dL (2.5-4.5); POTASSIUM 4.8 mmol/L (3.6-5.0); SODIUM 142.8 mmol/L (137-145)
[2018-06-19] MEDS: METHYLPREDNISOLONE INJ 125 MG/2 ML SDV IV SCH ×4 (05:41→23:35)
[2018-06-19] MEDS: FAMOTIDINE INJ/PF 20 MG/2 ML SDV IV SCH ×2 (11:39→21:38)
[2018-06-19] MEDS ORDERED: FENTANYL CITRATE INJ/PF 100 MCG/2 ML AMPUL ONE (15:19)
[2018-06-19] MEDS ORDERED: PROPOFOL INJ 200 MG/20 ML VIAL IV ONE (15:20)
[2018-06-19] MEDS ORDERED: ONDANSETRON HCL INJ/PF 4 MG/2 ML SDV ONE (15:20)
[2018-06-19] MEDS ORDERED: MIDAZOLAM 2 MG/2 ML INJ ONE (15:20)
[2018-06-19] MEDS ORDERED: DEXAMETHASONE SOD PHOSPHATE INJ 4 MG/1 ML VIAL ONE (15:20)
[2018-06-19] MEDS ORDERED: LIDOCAINE 2%/EPINEPHRINE INJ 1.7 ML CARTRIDGE ONE (15:25)
[2018-06-19] MEDS ORDERED: BUPIVACAINE HCL 0.5%/EPI 1:200000 INJ 1.8 ML CARTRIDGE ONE (15:26)
--- NOTE | 2018-06-19 15:26 | PDOC PROGRESS REPORT ---
Subjective Progress Note for:: 06/19/18 Subjective:: 33 y.o. M with a H tobacco use presented to [facility] with a dental abscess and facial cellulitis. Dr. Gottlieb was called this morning (he is providing coverage today at [facility]) and asked to evaluate the patient for a possible tooth extraction. Following his assessment, Dr. Gottlieb states he plans to take patient to the OR today at 3 PM. The patient was updated regarding the new plan of care. Transfer to [facility] currently on hold, although not going to cancel completely at this time. Reason For Visit: INFECTED TOOTH Physical Exam Vital Signs: Temp Pulse Resp BP Pulse Ox 97.5 F 44 L 18 149/82 H 98 06/19/18 11:49 06/19/18 11:49 06/19/18 11:49 06/19/18 11:49 06/19/18 11:49 Intake & Output 06/18/18 06/19/18 06/20/18 06:59 06:59 06:59 Intake Total 3450 2930 1100 Output Total 400 Balance 3050 2930 1100 Weight 105 kg General appearance: PRESENT: no acute distress, well-developed, well-nourished Head exam: PRESENT: atraumatic, normocephalic Eye exam: PRESENT: conjunctiva pink, EOMI, PERRLA. ABSENT: scleral icterus Ear exam: PRESENT: normal external ear exam Mouth exam: PRESENT: moist, tongue midline Teeth exam: PRESENT: dental caries Throat exam: ABSENT: post pharyngeal erythema Neck exam: PRESENT: other - Left submandibular swelling, radiating to underneath the chin. ABSENT: carotid bruit, JVD, lymphadenopathy, thyromegaly Respiratory exam: PRESENT: clear to auscultation luther. ABSENT: rales, rhonchi, wheezes Cardiovascular exam: PRESENT: RRR. ABSENT: diastolic murmur, rubs, systolic murmur Pulses: PRESENT: normal dorsalis pedis pul Vascular exam: PRESENT: normal capillary refill GI/Abdominal exam: PRESENT: normal bowel sounds, soft. ABSENT: distended, guarding, mass, organolmegaly, rebound, tenderness Rectal exam: PRESENT: deferred Extremities exam: PRESENT: full ROM. ABSENT: calf tenderness, clubbing, pedal edema Neurological exam: PRESENT: alert, awake, oriented to person, oriented to place, oriented to time, oriented to situation Psychiatric exam: PRESENT: appropriate affect, normal mood Skin exam: PRESENT: dry, intact, warm. ABSENT: cyanosis, rash Results Laboratory Results: 06/19/18 03:54 06/19/18 03:54 06/19/18 06/19/18 03:54 03:54 WBC 15.0 H RBC 4.59 Hgb 13.8 Hct 42.2 MCV 92 MCH 29.9 MCHC 32.6 RDW 14.2 H Plt Count 134 L Sodium 142.8 Potassium 4.8 Chloride 105 Carbon Dioxide 30 Anion Gap 8 BUN 28 H Creatinine 0.66 Est GFR ( Amer) > 60 Est GFR (Non-Af Amer) > 60 Glucose 144 H Calcium 10.2 Phosphorus 3.8 Magnesium 2.3 Total Bilirubin 0.3 AST 130 H ALT 176 H Alkaline Phosphatase 98 Total Protein 6.0 L Albumin 3.4 L Impressions: Soft Tissue Neck CT 06/16/18 12:36 IMPRESSION: Advanced dental caries in the left lower wisdom tooth, with buccal subperiosteal abscess at the level of the left mandibular angle Status: Imported from PACS Assessment and Plan - Diagnosis (1) Facial cellulitis Is this a current diagnosis for this admission?: Yes Plan: Secondary to dental abscess Soft tissue cellulitis seen on CT Patient endorses difficulty swallowing Monitor closely for airway swelling, tongue swelling, inability to manage secretions Scheduled Unasyn IV OR today for tooth extraction (2) Dental abscess Is this a current diagnosis for this admission?: Yes Plan: Secondary to dental caries and poor oral hygiene Tylenol and toradol for mild to moderate pain IV morphine for severe pain - Time Time Spent with patient: 15-24 minutes Medications reviewed and adjusted accordingly: Yes Anticipated discharge: Home Within: within 24 hours - Inpatient Certification Based on my medical assessment, after consideration of the patient's comorbidities, presenting symptoms, or acuity I expect that the services needed warrant INPATIENT care.: Yes I certify that my determination is in accordance with my understanding of Medicare's requirements for reasonable and necessary INPATIENT services [42 CFR 412.3e].: Yes Medical Necessity: Need for IV Antibiotics, Need for Surgery
--- NOTE | 2018-06-19 16:46 | Operative Report ---
Operative Report DATE OF SURGERY: 06/19/18 PREOPERATIVE DIAGNOSIS: Severe dental caries tooth #17 with acute periapical mu lti-space abscess POSTOPERATIVE DIAGNOSIS: Same OPERATION: Surgical removal of tooth #17 SURGEON: MIKE CASTELAN ANESTHESIA: GA TISSUE REMOVED OR ALTERED: Tooth which was discarded COMPLICATIONS: None ESTIMATED BLOOD LOSS: Minimal INTRAOPERATIVE FINDINGS: Tooth #17 was severely decayed. There is soft nonfluctuant swelling of the submental region and left submandibular region. There was active purulent discharge from the lingual of tooth #17 area. PROCEDURE: The patient was brought into operating room #1 and placed on the operating room table in supine position. General anesthesia was induced via a peripheral IV and continued utilizing endotracheal intubation. The patient was then prepped and draped in the usual fashion for an intraoral procedure. A total of 2 carpules of 2% Lidocaine with 1:100K Epi and 1 carpule of 0.5% Marcaine with 1:200K Epi were delivered to the planned surgical site via both infiltration and nerve block. The oral cavity and oropharynx were suctioned and a moistened oropharyngeal throat pack was placed. A bite block was used throughout the procedure. A full thickness mucoperisteal flap was elevated via an envelope incision. Ostectomy was completed as needed. The tooth was delivered with elevators and forceps. The site was debrided and irrigated with normal saline followed by Betadine followed by normal saline. Mandible intact post op. JUWAN not visualized. The oral cavity was suctioned and found to be free of debris. The throat pack was removed. The oropharynx was suctioned. Gauze packs were placed to aid in continued hemastasis. The patient was awakened from general anesthesia, extubated in the operating room and taken to recovery in spontaneous breathing fashion.
[2018-06-19] MEDS ORDERED: DIPHENHYDRAMINE HCL 50 MG/ML VIAL IV PRN (17:37)
[2018-06-19] MEDS ORDERED: MEPERIDINE HCL/PF INJ 25 MG/1 ML DISP.SYRIN IV PRN (17:37)
[2018-06-19] MEDS ORDERED: FENTANYL CITRATE INJ/PF 100 MCG/2 ML AMPUL IV PRN ×3 (17:37)
[2018-06-19] MEDS ORDERED: PROMETHAZINE HCL INJ 25 MG/1 ML VIAL IV PRN ×2 (17:37)
[2018-06-20] MEDS: AMPICILLIN SODIUM/SULBACTAM NA 3 GM in NORMAL SALINE 100 ML IV SCH ×2 (03:25→09:12)
[2018-06-20] MEDS ORDERED: IBUPROFEN 400 MG TABLET PO PRN (03:26)
[2018-06-20] MEDS: KETOROLAC TROMETHAMINE INJ/PF 30 MG/1 ML SDV IV PRN (03:45)
[2018-06-20] MEDS: METHYLPREDNISOLONE INJ 125 MG/2 ML SDV IV SCH (05:08)
[2018-06-20] MEDS ORDERED: OXYCODONE-ACETAMINOPHEN 5-325 MG TABLET PO PRN ×2 (08:21→08:22)
[2018-06-20] MEDS ORDERED: AMOXICILLIN TR/POT CLAVULANATE 500-125 MG TAB PO ONE (09:00)
[2018-06-20] MEDS: FAMOTIDINE INJ/PF 20 MG/2 ML SDV IV SCH (09:12)
[2018-06-20 09:23] VITALS: BP 133/76
== END 2018-06-20 09:47 | disposition home or self-care (01) | DRG 158 ==
LOC: ER 12:29 → EH 15:54 → 4N 16:58 → 3N 06-17 18:07
PROVIDERS: ADMIT Internal Medicine; ATTEND Internal Medicine
PROC: 0CTW0Z0 Resection of Upper Tooth, Single, Open Approach (ICD-10-PCS; principal; 2018-06-19 15:45)
DX: K04.7 Periapical abscess without sinus (principal); L03.211 Cellulitis of face; K02.9 Dental caries, unspecified; F17.210 Nicotine dependence, cigarettes, uncomplicated
CPT/HCPCS: 170; 36415; 70491; 80053; 83605; 83735; 84100; 85025; 85027; 87040; 87077; 96361; 96365; 96375; 99284; J0295; J1100; J1170; J1885; J2250; J2270; J2405; J2704; J2920; J2930; J3010; J3490; J7030; J7050; J7120; S0028